=== PATIENT | male | born 1945 | race Caucasian/White ===

== ENCOUNTER 2016-09-04 15:24 | Inpatient (IN) | payer MEDICARE ==
[~2016-09-04] VITALS: Ht 175.3 cm; Wt 87.0 kg
[~2016-09-04 15:24] MED LIST: ASPIRIN ADULT L81 MG PO; AZITHROMYCIN250 MG PO; CATAPRES-T0.1 MG/24 TD; CATAPRES0.1 MG PO; CIPRO XR500 MG PO; CIPROFLOXACN500 MG PO; DILAUDID 2MG2 MG/TA1 PO; DITROPAN OR; DONEPEZIL10 MG PO; FAMOTIDINE20 M1 OR; FAMOTIDINE20 M1 PO; FOLIC ACID1 MG VT; GLIPIZIDE5 MG OR; HEPARIN SC; HYDROCHLOROT12.5 MG OR; KEFLEX500 M1 PO; LANTUS100 MG/ML SC; LANTUS100 UNIT/M SC; LEVITRA20 MG OR; LEVOXYL25 MCG OR; LISINOPRIL20 M1 OR; LISINOPRIL20 MG; LOPRESSOR 550 MG/TAB PO; LOSARTAN POT100 MG PO; MAGNESIUM500 MG VT; METOPROL TAR100 M1 PO; METOPROLOL TAR100 MG PO; METOPROLOL100 M1 VT; NOVOLOG SC; NOVOLOG100 IU/1 M SC; NOVOLOG100 UNIT/M SC; OXYBUTYNIN5 MG PO; PAROXETINE10 MG PO; PROTEINE1 OR; REMERON45 MG VT; SERTRALINE50 MG PO; SIMVASTATIN10 MG PO; SIMVASTATIN20 MG OR; SIMVASTATIN40 MG PO; SYNTHROID OR; TAMSULOSIN0.4 MG OR; TAMSULOSIN0.4 MG PO; TERAZOSIN2 MG OR; TRAMADOL HYDROC50 MG PO; TRANSDERM-1 MG/3 DAY TD; TRICOR145 MG OR; TRICOR145 MG PO; VITAMIN D31000 UNI1 PO; ZANTAC SYRUP15 MG/ML VT; ZESTRIL OR; ZESTRIL40 MG OR; ZITHROMAX500 MG PO; ZOCOR80 MG OR; ZPAK PO; [UNRECOGNIZED DRUG - OTHER] VT
[2016-09-04 17:14] LABS: HEMATOCRIT 39.1 % (39.0-50.0); IMMATURE GRANULOCYTES 0.4 % (0.0-1.0); MEAN CELL VOLUME 81.5 fL CALC (80.0-100.0); MEAN CORPUSCULAR HGB 27.1 pG CALC (26.0-32.0); MEAN CORPUSCULAR HGB CONC 33.2 g/L CALC (32.0-36.0); NEUT# 11.83 thou/uL (1.82-7.42); RED BLOOD COUNT 4.8 mill/uL (4.70-6.10); RED CELL DISTRI WIDTH 13.8 % (11.5-15.5)
[2016-09-04 17:33] LABS: ALBUMIN 3.8 g/dL (3.2-5.0); ALKALINE PHOSPHATASE 125 u/l (38-126); ANION GAP 17 (6-22 (CALC)); BILIRUBIN, TOTAL 0.9 mg/dL (0.0-1.4); BUN 19 mg/dL (8-23); BUN/CREATININE RATIO 24 (12-20 (CALC)); CALCIUM 8.9 mg/dL (8.4-10.2); CARBON DIOXIDE 19 mmol/l (22-30); CHLORIDE 105 mmol/l (95-108); CREATININE 0.8 mg/dL (0.7-1.3); GFR > 60 ML/MIN (>=60 (CALC)); GFR FOR AFR.AMER. > 60 ML/MIN (>=60 (CALC)); GLUCOSE 129 mg/dL (82-115); POTASSIUM 4.3 mmol/l (3.5-5.1); SGOT/AST 22 u/l (19-48); SGPT/ALT 37 u/l (11-66); SODIUM 136 mmol/l (137-146); TOTAL PROTEIN 6.7 g/dL (6.3-8.2)
[2016-09-04 17:45] LABS: MYOGLOBIN 68 ng/mL (0 - 121)
[2016-09-04 18:13] LABS: URINE BILIRUBIN - DIPSTICK NEGATIVE (NEGATIVE); URINE BLOOD DIPSTICK NEGATIVE (NEGATIVE); URINE CLARITY CLEAR; URINE COLOR YELLOW; URINE GLUCOSE - DIPSTICK NEGATIVE (NEGATIVE); URINE KETONE NEGATIVE (NEGATIVE); URINE LEUK ESTERASE NEGATIVE (NEGATIVE); URINE NITRITE - DIPSTICK NEGATIVE (Negative); URINE PROTEIN - DIPSTICK NEGATIVE (NEG-TRACE); URINE SPECIFIC GRAVITY >=1.030; URINE UROBILINOGEN - DIPSTICK 0.2 E.U./dL (0.2)
[2016-09-04 19:53] VITALS: BP 124/65
[2016-09-05 00:05] VITALS: BP 141/74
[2016-09-05 03:57] VITALS: BP 139/69
[2016-09-05 05:56] LABS: HEMATOCRIT 36.2 % (39.0-50.0); HEMOGLOBIN 11.8 g/dl (14.0-18.0); IMMATURE GRANULOCYTES 0.5 % (0.0-1.0); MEAN CELL VOLUME 83.4 fL CALC (80.0-100.0); MEAN CORPUSCULAR HGB 27.2 pG CALC (26.0-32.0); MEAN CORPUSCULAR HGB CONC 32.6 g/L CALC (32.0-36.0); NEUT# 10.07 thou/uL (1.82-7.42); RED BLOOD COUNT 4.34 mill/uL (4.70-6.10)
[2016-09-05 06:05] LABS: ANION GAP 13 (6-22 (CALC)); BUN 19 mg/dL (8-23); BUN/CREATININE RATIO 23 (12-20 (CALC)); CALCIUM 8.3 mg/dL (8.4-10.2); CARBON DIOXIDE 22 mmol/l (22-30); CHLORIDE 108 mmol/l (95-108); CREATININE 0.8 mg/dL (0.7-1.3); GFR > 60 ML/MIN (>=60 (CALC)); GFR FOR AFR.AMER. > 60 ML/MIN (>=60 (CALC)); GLUCOSE 70 mg/dL (82-115); POTASSIUM 3.9 mmol/l (3.5-5.1); SODIUM 140 mmol/l (137-146)
[2016-09-05 08:55] VITALS: BP 110/47
[2016-09-05 16:25] VITALS: BP 120/62
[2016-09-05 21:47] VITALS: BP 133/70
[2016-09-06 05:07] VITALS: BP 154/76
[2016-09-06 05:44] LABS: HEMATOCRIT 38.3 % (39.0-50.0); HEMOGLOBIN 12.2 g/dl (14.0-18.0); IMMATURE GRANULOCYTES 0.5 % (0.0-1.0); MEAN CORPUSCULAR HGB 26.8 pG CALC (26.0-32.0); MEAN CORPUSCULAR HGB CONC 31.9 g/L CALC (32.0-36.0); NEUT# 11.07 thou/uL (1.82-7.42); RED BLOOD COUNT 4.56 mill/uL (4.70-6.10); RED CELL DISTRI WIDTH 13.9 % (11.5-15.5)
[2016-09-06 08:07] VITALS: BP 139/63
[2016-09-06 10:46] VITALS: BP 126/58
[2016-09-06 15:34] VITALS: BP 135/74
[2016-09-06 20:00] VITALS: BP 136/63
[2016-09-07] VITALS: BP 143/68
[2016-09-07 05:51] LABS: HEMATOCRIT 36.6 % (39.0-50.0); HEMOGLOBIN 11.7 g/dl (14.0-18.0); IMMATURE GRANULOCYTES 0.8 % (0.0-1.0); MEAN CELL VOLUME 84.5 fL CALC (80.0-100.0); NEUT# 16.5 thou/uL (1.82-7.42); RED BLOOD COUNT 4.33 mill/uL (4.70-6.10); RED CELL DISTRI WIDTH 13.8 % (11.5-15.5)
[2016-09-07 06:03] LABS: ANION GAP 16 (6-22 (CALC)); BUN 28 mg/dL (8-23); BUN/CREATININE RATIO 30 (12-20 (CALC)); CARBON DIOXIDE 19 mmol/l (22-30); CHLORIDE 109 mmol/l (95-108); CREATININE 0.9 mg/dL (0.7-1.3); GFR > 60 ML/MIN (>=60 (CALC)); GFR FOR AFR.AMER. > 60 ML/MIN (>=60 (CALC)); GLUCOSE 262 mg/dL (82-115); SODIUM 139 mmol/l (137-146)
[2016-09-07 08:00] VITALS: BP 146/84
[2016-09-07] MEDS ORDERED: PLAVIX75 MG PO (10:11)
[2016-09-07] MEDS ORDERED: METRONIDAZOL500 MG PO (10:16)
[2016-09-07] MEDS ORDERED: FLORASTOR250 M1 PO (10:16)
[2016-09-07] MEDS ORDERED: LEVAQUIN750 MG PO (10:16)
[2016-09-07] MEDS ORDERED: IPRATROPIU0.5 MG/3 M IN (10:16)
[2016-09-07] MEDS ORDERED: PREDNISONE10 MG PO (10:26)
[2016-09-07 10:32] VITALS: BP 151/68
[2016-09-07 15:11] VITALS: BP 131/56
== END 2016-09-07 15:51 | DRG 178 ==
LOC: ENPENDDIS → ED 15:24 → ED-I 17:45 → ED 18:15 → MS2 18:16
PROVIDERS: Emergency Medicine; ADMIT Internal Medicine; ATTEND Internal Medicine
PROC: 0T9B70Z Drainage of Bladder with Drainage Device, Via Natural or Artificial Opening (ICD-10-PCS; principal; 2016-09-04)
DX: J69.0 Pneumonitis due to inhalation of food and vomit (principal); J44.0 Chronic obstructive pulmonary disease with (acute) lower respiratory infection; E11.649 Type 2 diabetes mellitus with hypoglycemia without coma; I69.920 Aphasia following unspecified cerebrovascular disease; J18.9 Pneumonia, unspecified organism; R13.10 Dysphagia, unspecified; N31.2 Flaccid neuropathic bladder, not elsewhere classified; I10 Essential (primary) hypertension; E78.5 Hyperlipidemia, unspecified; I25.10 Atherosclerotic heart disease of native coronary artery without angina pectoris; R09.02 Hypoxemia; I69.991 Dysphagia following unspecified cerebrovascular disease; N39.498 Other specified urinary incontinence; Z87.891 Personal history of nicotine dependence; Z79.4 Long term (current) use of insulin
CPT/HCPCS: J1650

== ENCOUNTER 2016-12-19 17:31 | Emergency (ER) | payer MEDICARE ==
[~2016-12-19] VITALS: Ht 175.3 cm; Wt 92.0 kg
[~2016-12-19 17:31] MED LIST changes: +FLORASTOR250 M1 PO; +IPRATROPIU0.5 MG/3 M IN; +LEVAQUIN750 MG PO; +METRONIDAZOL500 MG PO; +PLAVIX75 MG PO; +PREDNISONE10 MG PO
[2016-12-19] MEDS ORDERED: QUETIAPINE FUMA50 M1 PO (17:48)
[2016-12-19] MEDS ORDERED: GABAPENTIN100 MG PO (17:51)
[2016-12-19] MEDS ORDERED: PROBIOTIC1 TAB PO (17:52)
[2016-12-19] MEDS ORDERED: LIPITOR80 M1 PO (17:58)
[2016-12-19 18:01] LABS: HEMATOCRIT 43.4 % (39.0-50.0); IMMATURE GRANULOCYTES 0.6 % (0.0-1.0); MEAN CELL VOLUME 84.1 fL CALC (80.0-100.0); MEAN CORPUSCULAR HGB 27.1 pG CALC (26.0-32.0); MEAN CORPUSCULAR HGB CONC 32.3 g/L CALC (32.0-36.0); NEUT# 6.02 thou/uL (1.82-7.42); RED BLOOD COUNT 5.16 mill/uL (4.70-6.10)
[2016-12-19 18:13] LABS: INTERNATIONAL NORMALIZED RATIO 0.9 RATIO (0.7-1.3); PROTHROMBIN TIME 9.8 SECONDS (9.0-12.5)
[2016-12-19 18:15] LABS: ALBUMIN 4.1 g/dL (3.2-5.0); ALKALINE PHOSPHATASE 177 u/l (38-126); ANION GAP 14 (6-22 (CALC)); BILIRUBIN, TOTAL 0.6 mg/dL (0.0-1.4); BUN 18 mg/dL (8-23); BUN/CREATININE RATIO 20 (12-20 (CALC)); CALCIUM 9.4 mg/dL (8.4-10.2); CARBON DIOXIDE 25 mmol/l (22-30); CHLORIDE 108 mmol/l (95-108); CREATININE 0.9 mg/dL (0.7-1.3); GFR > 60 ML/MIN (>=60 (CALC)); GFR FOR AFR.AMER. > 60 ML/MIN (>=60 (CALC)); GLUCOSE 149 mg/dL (82-115); POTASSIUM 3.9 mmol/l (3.5-5.1); SGOT/AST 27 u/l (19-48); SGPT/ALT 35 u/l (11-66); SODIUM 143 mmol/l (137-146); TOTAL PROTEIN 7.4 g/dL (6.3-8.2)
[2016-12-19 18:27] LABS: MYOGLOBIN 55 ng/mL (0 - 121)
[2016-12-19 19:26] VITALS: BP 142/64
== END 2016-12-19 19:27 | disposition short-term general hospital (02) ==
LOC: ED 17:31
PROVIDERS: Emergency Medicine
DX: G45.9 Transient cerebral ischemic attack, unspecified (principal); I10 Essential (primary) hypertension; R53.1 Weakness; E11.9 Type 2 diabetes mellitus without complications; Z79.4 Long term (current) use of insulin; Z85.46 Personal history of malignant neoplasm of prostate; E78.5 Hyperlipidemia, unspecified; J44.9 Chronic obstructive pulmonary disease, unspecified; R29.703 NIHSS score 3

== ENCOUNTER 2017-02-18 17:13 | Inpatient (IN) | payer MEDICARE ==
[~2017-02-18] VITALS: Ht 175.3 cm; Wt 85.0 kg
[~2017-02-18 17:13] MED LIST changes: +GABAPENTIN100 MG PO; +LIPITOR80 M1 PO; +PROBIOTIC1 TAB PO; +QUETIAPINE FUMA50 M1 PO
--- NOTE | 2017-02-18 17:26 | NUR ---
TO TX ROOM VIA W/C
[2017-02-18] MEDS ORDERED: ARICEPT5 MG PO (18:38)
--- NOTE | 2017-02-18 18:50 | NUR ---
TO ROOM 7 FOR FURTHER CARE
--- NOTE | 2017-02-18 18:51 | NUR ---
PT TO ROOM 8 - RECEIVED REPORT FROM YVES LUJAN.
[2017-02-18] MEDS ORDERED: ZOLOFT25 MG PO (18:53)
[2017-02-18 19:04] LABS: HEMATOCRIT 47.2 % (39.0-50.0); HEMOGLOBIN 14.6 g/dl (14.0-18.0); IMMATURE GRANULOCYTES 0.3 % (0.0-1.0); MEAN CELL VOLUME 88.6 fL CALC (80.0-100.0); MEAN CORPUSCULAR HGB 27.4 pG CALC (26.0-32.0); MEAN CORPUSCULAR HGB CONC 30.9 g/L CALC (32.0-36.0); NEUT# 7.44 thou/uL (1.82-7.42); RED BLOOD COUNT 5.33 mill/uL (4.70-6.10); RED CELL DISTRI WIDTH 14.8 % (11.5-15.5)
[2017-02-18 19:16] LABS: ALBUMIN 4.5 g/dL (3.2-5.0); ALKALINE PHOSPHATASE 203 u/l (38-126); ANION GAP 20 (6-22 (CALC)); BILIRUBIN, TOTAL 0.8 mg/dL (0.0-1.4); BUN 17 mg/dL (8-23); BUN/CREATININE RATIO 18 (12-20 (CALC)); CALCIUM 9.9 mg/dL (8.4-10.2); CARBON DIOXIDE 17 mmol/l (22-30); CHLORIDE 110 mmol/l (95-108); GFR > 60 ML/MIN (>=60 (CALC)); GFR FOR AFR.AMER. > 60 ML/MIN (>=60 (CALC)); GLUCOSE 133 mg/dL (82-115); SGOT/AST 39 u/l (19-48); SGPT/ALT 40 u/l (11-66); SODIUM 142 mmol/l (137-146)
[2017-02-18 19:28] LABS: MYOGLOBIN 44 ng/mL (0 - 121)
--- NOTE | 2017-02-18 19:50 | NUR ---
UPDATE DAUGHTER ON PLAN OF CARE. WILL HOLD OFF ON ANTIBIOTICS AND FLUID UNTIL TEST BACK. DAUGHTER PREFERS NOT TO GIVE ANTIBIOTICS FOR VIRAL.
[2017-02-18 20:06] LABS: INFLUENZA A NONE DETECTED (NONE DETECT); INFLUENZA B NONE DETECTED (NONE DETECT)
--- NOTE | 2017-02-18 20:20 | NUR ---
STRAIGHT CATH URINE COLLECTED AND SENT TO LAB. PT CLEANSED DUE TO INCONTINENT OF URINE AND SMALL AMOUNT OF STOOL.
[2017-02-18 20:40] LABS: URINE BILIRUBIN - DIPSTICK NEGATIVE (NEGATIVE); URINE BLOOD DIPSTICK NEGATIVE (NEGATIVE); URINE COLOR YELLOW; URINE GLUCOSE - DIPSTICK NEGATIVE (NEGATIVE); URINE KETONE NEGATIVE (NEGATIVE); URINE LEUK ESTERASE NEGATIVE (Negative); URINE NITRITE - DIPSTICK NEGATIVE (Negative); URINE PH 5.5 (4.5-8.0); URINE PROTEIN - DIPSTICK NEGATIVE (NEG-TRACE); URINE SPECIFIC GRAVITY >=1.030; URINE UROBILINOGEN - DIPSTICK 0.2 E.U./dL (0.2)
[2017-02-18 20:41] LABS: URINE CLARITY CLEAR
--- NOTE | 2017-02-18 20:58 | NUR ---
SPOKE WITH DR JIMENEZ ABOUT ORDERS, DR JIMENEZ WILL RE-EVALUATE.
--- NOTE | 2017-02-18 21:12 | NUR ---
DR JIMENEZ IN TO RE-EVALUATE PT.
--- NOTE | 2017-02-18 21:14 | NUR ---
PER DR JIMENEZ, GIVE ANTIBIOTICS.
--- NOTE | 2017-02-18 22:09 | NUR ---
REPORT GIVEN TO KIM YUAN
--- NOTE | 2017-02-18 22:15 | NUR ---
Admission Note Report Given to: KIM YUAN Transported by: Wheelchair X Stretcher Transported with: X Nurse Transporter X Patent IV X O2 X Conductor/Engineer
[2017-02-18 22:30] VITALS: BP 144/81
--- NOTE | 2017-02-18 22:30 | NUR ---
PT RECEIVED FROM ER VIA STRETCHER ACCOMPANIED BY EMIL MARINELLI, TRANSFERRED TO BED WITH ASSISTANCE X3, PT A/O TO SELF, AND PLACE, HAS GARBLED SPEECH. LEFT FACIAL DROOP DUE TO HX OF STROKE, LEFT HAND MANAGER INTEGRATED WEAKER THAN RIGHT. DAUGHTER (SHAILESH PERALTA) AT PT'S SIDE STATES SHE LIVES WITH HIM, AND AT HOME HE IS ABLE TO WALK USING A WALKER AND DO FOR HIMSELF WITH MINIMAL ASSISTANCE SHE WORKS IN THE DAY TIME AND PT STAYS HOME. DAUGHTER STATES PT HAS HAD A FEVER, WEAKNESS, CONGESTION, NON PRODUCTIVE COUGH, AND SORE THROAT FOR THE PAST 3DAYS. LEVAQUIN INFUSING TO RFA WITH NO COMPLICATIONS. ACCUCHECK 135, PUDDING AND YOGURT PROVIDED FOR BED TIME SNACK, PT ABLE TO FEED HIMSELF. THICKENED LIQUIDS AT BED SIDE, PT'S DAUGHTER STATES PT IS SUPPOSED TO BE ON THICKENED LIQUIDS AT HOME, BUT HE USUALLY DRINKS ANYTHING HE WANTS. CALL LIGHT IN REACH, WILL CONTINUE TO MONITOR.
--- NOTE | 2017-02-19 01:00 | NUR ---
RESTING IN SEMIFOWLERS WITH EYES CLOSED, RESPIRATIONS EVEN AND UNLABORED.
--- NOTE | 2017-02-19 04:28 | NUR ---
MORNING BLOOD WORK DRAWN BY [employer]ATSWAIN'S MATE, TOLERATED WELL.
[2017-02-19 05:01] VITALS: BP 135/64
[2017-02-19 05:15] LABS: HEMATOCRIT 37.8 % (39.0-50.0); HEMOGLOBIN 12.3 g/dl (14.0-18.0); IMMATURE GRANULOCYTES 0.4 % (0.0-1.0); MEAN CELL VOLUME 85.7 fL CALC (80.0-100.0); MEAN CORPUSCULAR HGB 27.9 pG CALC (26.0-32.0); MEAN CORPUSCULAR HGB CONC 32.5 g/L CALC (32.0-36.0); NEUT# 4.57 thou/uL (1.82-7.42); RED BLOOD COUNT 4.41 mill/uL (4.70-6.10); RED CELL DISTRI WIDTH 14.6 % (11.5-15.5)
[2017-02-19 05:29] LABS: ANION GAP 15 (6-22 (CALC)); BUN 17 mg/dL (8-23); BUN/CREATININE RATIO 18 (12-20 (CALC)); CALCIUM 9.3 mg/dL (8.4-10.2); CARBON DIOXIDE 21 mmol/l (22-30); CHLORIDE 110 mmol/l (95-108); CREATININE 0.9 mg/dL (0.7-1.3); GFR > 60 ML/MIN (>=60 (CALC)); GFR FOR AFR.AMER. > 60 ML/MIN (>=60 (CALC)); GLUCOSE 116 mg/dL (82-115); POTASSIUM 4.3 mmol/l (3.5-5.1); SODIUM 142 mmol/l (137-146)
--- NOTE | 2017-02-19 07:34 | NUR ---
REPORT RECEIVED FROM KIM YUAN. PT SUPINE IN BED. SLEEPING. CALL LIGHT WITHIN REACH.
[2017-02-19 08:18] VITALS: BP 136/56
--- NOTE | 2017-02-19 08:52 | NUR ---
PT SITTING UPRIGHT IN BED. DENIES PAIN. REPORTING OF CONCERNS ENCOURAGED. FALL PRECAUTIONS REINFORCED. CALL LIGHT REVIEWED AND IN REACH. PT STATES UNDERSTANDING.
[2017-02-19 11:22] VITALS: BP 109/62
--- NOTE | 2017-02-19 12:33 | NUR ---
PT SITTING UPRIGHT IN BED. DR. BERUMEN IN TO SEE PT AT THIS TIME.
[2017-02-19 15:57] LABS: CHOLESTEROL HDL RATIO 5.1 (<4.4 (CALC))
[2017-02-19 16:00] VITALS: BP 114/64
--- NOTE | 2017-02-19 16:42 | NUR ---
PT FOUND BY RT KNEELING ON THE FLOOR. DENIES FALLING. SELECTIVE IN ANSWERING QUESTIONS BY STAFF. FALL PRECAUTIONS REINFORCED. CALLING FOR ASSISTANCE TO GET UP REINFORCED. CALL LIGHT REIVEWED AND IN REACH. PT ASSISTED BACK TO BED. BED ALARM SET FOR SAFETY R/T IMPULSIVITY.
[2017-02-19 18:45] VITALS: BP 136/73
--- NOTE | 2017-02-19 19:45 | NUR ---
BEDSIDE REPORT RECEIVED FROM YVES SANTAMARIA. PT SITTING UP IN BED WITH DAUGHTER AT BEDSIDE. ALERT AND ORIENTED. DENIES PAIN CURRENTLY. RESPIRATIONS EVEN AND UNLABORED. RECEIVES HONEY THICKENED LIQUIDS. PLAN OF CARE DISCUSSED WITH DAUGHTER PRESENT. PT ENCOURAGED TO VERBALIZE CONCERNS. STATES UNDERSTANDING. SAFETY MEASURES IN PLACE INCLUDING BED ALARM. CALL LIGHT SYSTEM REVIEWED AND IN REACH.
--- NOTE | 2017-02-20 00:48 | NUR ---
PT ASLEEP AT THIS TIME. AWAKENS SPONTANOUSLY. DENIES PAIN. RESPIRATIONS EVEN AND UNLABORED. NO REQUESTS AT THIS TIME. USING URINAL TO VOID. SAFETY MEASURES IN PLACE. CALL LIGHT WITHIN REACH.
--- NOTE | 2017-02-20 05:00 | NUR ---
PT USING BEDSIDE URINAL AND ALSO INCONTINENT OF URINE. IV ABT HAVE INFUSED WITHOUT DIFFICUTLY AND WITH NO ADVERSE EFFECTS NOTED. PT HAS NO REQUESTS OR COMPLAINTS AT THIS TIME. REPOSITIONS SELF IN BED. SAFETY MEASURES IN PLACE. CALL LIGHT WITHIN REACH.
[2017-02-20 05:06] LABS: ANION GAP 19 (6-22 (CALC)); BUN 24 mg/dL (8-23); BUN/CREATININE RATIO 26 (12-20 (CALC)); CALCIUM 9.6 mg/dL (8.4-10.2); CARBON DIOXIDE 17 mmol/l (22-30); CHLORIDE 113 mmol/l (95-108); CREATININE 0.9 mg/dL (0.7-1.3); GFR > 60 ML/MIN (>=60 (CALC)); GFR FOR AFR.AMER. > 60 ML/MIN (>=60 (CALC)); GLUCOSE 263 mg/dL (82-115); MAGNESIUM 2.1 mg/dL (1.6-2.3); POTASSIUM 4.7 mmol/l (3.5-5.1); SODIUM 143 mmol/l (137-146)
[2017-02-20 05:13] LABS: HEMATOCRIT 39.5 % (39.0-50.0); HEMOGLOBIN 12.7 g/dl (14.0-18.0); IMMATURE GRANULOCYTES 0.4 % (0.0-1.0); MEAN CELL VOLUME 85.9 fL CALC (80.0-100.0); MEAN CORPUSCULAR HGB 27.6 pG CALC (26.0-32.0); MEAN CORPUSCULAR HGB CONC 32.2 g/L CALC (32.0-36.0); NEUT# 9.45 thou/uL (1.82-7.42); RED BLOOD COUNT 4.6 mill/uL (4.70-6.10); RED CELL DISTRI WIDTH 14.6 % (11.5-15.5)
[2017-02-20 05:18] VITALS: BP 157/71
--- NOTE | 2017-02-20 07:00 | NUR ---
SHIFT CHANGE REPORT, AWAKE, ALERT AND ORIENTED TO PERSON AND PLACE ONLY, DENIES PAIN AT THIS TIME, ALL NEEDS ADDRESSED, CALL AGUILERA IN REACH.
[2017-02-20 07:58] VITALS: BP 136/72
[2017-02-20 11:28] VITALS: BP 129/89
--- NOTE | 2017-02-20 12:00 | NUR ---
ASSISTED OOB TO RECLINER AND SET UP FOR MEAL, PT REPORTED HE WENT BR BY SELF ADVISED TO CALL FOR ASSIST AND EDUCATED ON FALL PRECAUTIONS, CALL AGUILERA IN REACH, WILL CONTINUE TO MONITOR.
[2017-02-20 15:52] VITALS: BP 119/56
--- NOTE | 2017-02-20 16:04 | NUR ---
RESTING IN BED AT THIS TIME, BODY ALARM PLACED AND PT INFORMED OF REASON, HE HAS BEEN IMPULSIVE- GETTING UP WITHOUT CALLING FOR ASSISTANCE, GAIT IS NOT VERY STEADY, WILL CONTINUE TO MONITOR AND IMPLEMENT SAFETY MEASURES.
--- NOTE | 2017-02-20 18:47 | NUR ---
PATIENT SEEN THIS AFTERNOON FOR GT X 15 MIN WITH STRAIGHT CANE. SIT TO STAND FROM CHAIR WITH CGA ONLY WITH CANE. AMB 75 FT TO END OF WHITE WITH CORRECTION OF SEQUENCING OF CANE WITH LEFT FOOT. HE TENDS TO TAKE MULTIPLE AND UNEVEN STEPS BEFORE ADVANCING CANE WITHOUT ASSIST. NO LOB AND O2 SATS REMAIONED ABOVE 93% ON ROOM AIR. HE SAT FOR SHORT REST AND THEN RETURND WITH MIN A FOR SEQUENCING CANE ONLY. FLAT FOOTED GAIT, BUT IMPROVED KNEE EXT AFTER FIRST WALK AND WITH V.C.'S. REQUESTED OT CONSULT PATIENT IS NO MOTIVATED FOR INPATIENT TX, IS NON-COMPLIANT WITH PRECAUTIONS (DOES NOT WISH TO USE WALKER, THICKENED LIQUIDS ETC). HIS DAUGHTER DOES NOT LIVE WITH HIM, BUT COMES AND STAYS WITH HIM FOR SHOWERING AND OTHER ADL FOR SAFETY.
[2017-02-20 19:25] VITALS: BP 126/74
--- NOTE | 2017-02-20 19:55 | NUR ---
PT WATCHING TV IN BED. PT ALERT AND ORIENTED; SPEECH SLURRED. HAND GRASP STRONG BILAT. RESP EVEN AND UNLABORED. WHEEZING IN UPPER LOBES, CLEAR IN BASES. NO DISTRESS NOTED. ABD SOFT, BOWEL SOUNDS PRESENT. TELE IN PLACE. IV RFA PATENT, FLUSHED WITHOUT ANY DIFFICULTY. PT DENIES ANY PAIN OR DISCOMFORT. FREQUENT ROUNDS MADE. SAFTEY PRECAUTIONS REINFORCED; BED ALARM ON FOR SAFETY. CALL LIGHT WITHIN REACH.
--- NOTE | 2017-02-21 00:20 | NUR ---
PT RESTING IN BED WATCHING TV. PT DENIES ANY PAIN OR DISCOMFORT. TELE IN PLACE. RESP EVEN AND UNLABORED. NO DISTRESS NOTED. BED ALARM ON. CALL LIGHT WITHIN REACH.
[2017-02-21 00:26] VITALS: BP 158/75
--- NOTE | 2017-02-21 04:17 | NUR ---
PT AWAKE WATCHING TV. PT DENIES ANY PAIN OR DISCOMFORT. RESP EVEN AND UNLABORED. NO DISTRESS NOTED. CALL LIGHT WITHIN REACH.
[2017-02-21 05:14] VITALS: BP 155/72
[2017-02-21 06:11] LABS: HEMATOCRIT 37.5 % (39.0-50.0); IMMATURE GRANULOCYTES 0.9 % (0.0-1.0); MEAN CELL VOLUME 85.8 fL CALC (80.0-100.0); MEAN CORPUSCULAR HGB 27.5 pG CALC (26.0-32.0); NEUT# 12.68 thou/uL (1.82-7.42); RED BLOOD COUNT 4.37 mill/uL (4.70-6.10); RED CELL DISTRI WIDTH 14.6 % (11.5-15.5)
[2017-02-21 06:26] LABS: ANION GAP 20 (6-22 (CALC)); BUN 28 mg/dL (8-23); BUN/CREATININE RATIO 35 (12-20 (CALC)); CALCIUM 9.3 mg/dL (8.4-10.2); CARBON DIOXIDE 16 mmol/l (22-30); CHLORIDE 113 mmol/l (95-108); CREATININE 0.8 mg/dL (0.7-1.3); GFR > 60 ML/MIN (>=60 (CALC)); GFR FOR AFR.AMER. > 60 ML/MIN (>=60 (CALC)); GLUCOSE 227 mg/dL (82-115); POTASSIUM 4.6 mmol/l (3.5-5.1); SODIUM 145 mmol/l (137-146)
--- NOTE | 2017-02-21 07:00 | NUR ---
SHIFT CHANGE REPORT FROM NAYELY PT AWAKE AND ALERT SITTING UP IN BED, DENIES DISCOMFORT, TELE MONITOR IN PLACE, CALL AGUILERA IN REACH.
[2017-02-21 07:43] VITALS: BP 154/72
--- NOTE | 2017-02-21 11:00 | NUR ---
PT WAS SEEN SITTING IN THE RECLINER. SPO2 ON ROOM AIR WAS 94%. PT WAS ABLE TO STAND UP FROM SHORT SITTING WITH 2 ATTEMPTS TO PUSH HIMSELF UP TO STAND. AMBULATED ~60 FT. X 2 WITH RW AND CGA. PT TENDS TO WALK IN AN UNSAFE FAST PACE. REMINDED PT ON FALL PRECAUTIONS TO WHICH THE PT NODDED TO SHOW UNDERSTANDING. PT RETURNED TO HIS ROOM AND SAT BACK IN THE CHAIR WITH VERBAL CUES. NO ADVERSE RXNS NOTED. SPO2 REMAINED AT 94% HOWEVER STATED FEELING WINDED. LEFT PT WITH CALL AGUILERA WITHIN REACH.
[2017-02-21 11:30] VITALS: BP 130/68
[2017-02-21] MEDS ORDERED: IPRATROPIU0.5 MG/3 M IN (12:52)
[2017-02-21] MEDS ORDERED: DOXYCYCL HYC100 MG PO (12:52)
[2017-02-21] MEDS ORDERED: METRONIDAZOL500 MG PO (12:52)
[2017-02-21] MEDS ORDERED: PREDNISONE10 MG PO (12:52)
--- NOTE | 2017-02-21 12:52 | NUR ---
O.T. instructed patient in safe transfers and patient performed sit <-> stand with CG and used R.W. to bathroom and performed toilet transfer with CG and VCs to use grab bar. Patient performed grooming at sink with CG and stepped back and had L.O.B. with Min A to regain and right back to midline. Patient aware of L.O.B. and said "I am alright." Patient used R.W. in room to recliner and needed VCs for proper hand placement.
[2017-02-21] MEDS ORDERED: TRAMADOL HCL50 MG PO (12:57)
[2017-02-21 15:40] VITALS: BP 146/68
== END 2017-02-21 17:49 | disposition home health service (06) | DRG 178 ==
LOC: ED 17:13 → ED-I 21:09 → ED 21:23 → MS2 21:24
PROVIDERS: Emergency Medicine; Nurse Practitioner Family; ADMIT Internal Medicine; ATTEND Internal Medicine
PROC: 3E0234Z Introduction of Serum, Toxoid and Vaccine into Muscle, Percutaneous Approach (ICD-10-PCS; principal; 2017-02-20)
DX: J69.0 Pneumonitis due to inhalation of food and vomit (principal); I69.954 Hemiplegia and hemiparesis following unspecified cerebrovascular disease affecting left non-dominant side; E11.40 Type 2 diabetes mellitus with diabetic neuropathy, unspecified; I69.922 Dysarthria following unspecified cerebrovascular disease; I69.992 Facial weakness following unspecified cerebrovascular disease; I10 Essential (primary) hypertension; I25.10 Atherosclerotic heart disease of native coronary artery without angina pectoris; I69.991 Dysphagia following unspecified cerebrovascular disease; R13.10 Dysphagia, unspecified; N40.0 Benign prostatic hyperplasia without lower urinary tract symptoms; Z87.891 Personal history of nicotine dependence; Z79.4 Long term (current) use of insulin; Z23 Encounter for immunization
CPT/HCPCS: G0378

== ENCOUNTER 2017-03-29 16:50 | Emergency (ER) | payer MEDICARE ==
[~2017-03-29] VITALS: Ht 175.3 cm; Wt 87.3 kg
[~2017-03-29 16:50] MED LIST changes: +ARICEPT5 MG PO; +DOXYCYCL HYC100 MG PO; +TRAMADOL HCL50 MG PO; +ZOLOFT25 MG PO
[2017-03-29 17:57] LABS: HEMATOCRIT 41.7 % (39.0-50.0); HEMOGLOBIN 13.2 g/dl (14.0-18.0); IMMATURE GRANULOCYTES 0.5 % (0.0-1.0); MEAN CELL VOLUME 85.5 fL CALC (80.0-100.0); MEAN CORPUSCULAR HGB CONC 31.7 g/L CALC (32.0-36.0); NEUT# 6.89 thou/uL (1.82-7.42); RED BLOOD COUNT 4.88 mill/uL (4.70-6.10); RED CELL DISTRI WIDTH 14.8 % (11.5-15.5)
[2017-03-29 18:00] LABS: INTERNATIONAL NORMALIZED RATIO 0.9 RATIO (0.7-1.3); PROTHROMBIN TIME 10.1 SECONDS (9.0-12.5)
[2017-03-29 18:01] LABS: ALBUMIN 3.7 g/dL (3.2-5.0); ALKALINE PHOSPHATASE 171 u/l (38-126); ANION GAP 17 (6-22 (CALC)); BILIRUBIN, TOTAL 0.5 mg/dL (0.0-1.4); BUN 15 mg/dL (8-23); BUN/CREATININE RATIO 15 (12-20 (CALC)); CARBON DIOXIDE 24 mmol/l (22-30); CHLORIDE 109 mmol/l (95-108); CREATININE 0.9 mg/dL (0.7-1.3); GFR > 60 ML/MIN (>=60 (CALC)); GFR FOR AFR.AMER. > 60 ML/MIN (>=60 (CALC)); POTASSIUM 4.5 mmol/l (3.5-5.1); SGOT/AST 23 u/l (19-48); SGPT/ALT 29 u/l (11-66); SODIUM 145 mmol/l (137-146); TOTAL PROTEIN 6.5 g/dL (6.3-8.2)
[2017-03-29 18:18] VITALS: BP 178/73
== END 2017-03-29 18:19 | disposition short-term general hospital (02) ==
LOC: ED 16:50
PROVIDERS: Emergency Medicine
DX: I63.9 Cerebral infarction, unspecified (principal); R13.10 Dysphagia, unspecified; R47.1 Dysarthria and anarthria; R29.810 Facial weakness; R53.1 Weakness; I10 Essential (primary) hypertension; R29.705 NIHSS score 5

== ENCOUNTER 2017-08-12 16:41 | Observation (INO) | payer MEDICARE ==
[~2017-08-12] VITALS: Ht 175.3 cm; Wt 86.0 kg
[2017-08-12 17:33] LABS: HEMOGLOBIN 13.6 g/dl (14.0-18.0); IMMATURE GRANULOCYTES 0.5 % (0.0-1.0); MEAN CELL VOLUME 82.9 fL CALC (80.0-100.0); MEAN CORPUSCULAR HGB 26.2 pG CALC (26.0-32.0); MEAN CORPUSCULAR HGB CONC 31.6 g/L CALC (32.0-36.0); NEUT# 5.44 thou/uL (1.82-7.42); RED BLOOD COUNT 5.19 mill/uL (4.70-6.10); RED CELL DISTRI WIDTH 15.5 % (11.5-15.5)
[2017-08-12 17:50] LABS: INTERNATIONAL NORMALIZED RATIO 0.9 RATIO (0.7-1.3); PROTHROMBIN TIME 10.3 SECONDS (9.0-12.5)
[2017-08-12 17:51] LABS: ANION GAP 13 (6-22 (CALC)); BUN 18 mg/dL (8-23); BUN/CREATININE RATIO 19 (12-20 (CALC)); CARBON DIOXIDE 25 mmol/l (22-30); CHLORIDE 107 mmol/l (95-108); GFR > 60 ML/MIN (>=60 (CALC)); GFR FOR AFR.AMER. > 60 ML/MIN (>=60 (CALC)); POTASSIUM 3.9 mmol/l (3.5-5.1); SODIUM 141 mmol/l (137-146)
[2017-08-12 20:00] VITALS: BP 145/66
[2017-08-13 00:12] VITALS: BP 147/74
[2017-08-13 04:41] VITALS: BP 127/64
[2017-08-13 07:25] VITALS: BP 114/63
[2017-08-13 10:48] LABS: URINE BILIRUBIN - DIPSTICK NEGATIVE (NEGATIVE); URINE BLOOD DIPSTICK NEGATIVE (NEGATIVE); URINE COLOR YELLOW; URINE GLUCOSE - DIPSTICK NEGATIVE (NEGATIVE); URINE KETONE NEGATIVE (NEGATIVE); URINE LEUK ESTERASE NEGATIVE (NEGATIVE); URINE NITRITE - DIPSTICK NEGATIVE (Negative); URINE PROTEIN - DIPSTICK NEGATIVE (NEG-TRACE); URINE UROBILINOGEN - DIPSTICK 0.2 E.U./dL (0.2)
[2017-08-13 10:49] LABS: URINE CLARITY CLEAR
[2017-08-13 11:40] VITALS: BP 123/67; BP 167/68
[2017-08-13 15:25] VITALS: BP 119/62
[2017-08-13 19:00] VITALS: BP 130/67
[2017-08-14 00:07] VITALS: BP 135/63
[2017-08-14 04:07] VITALS: BP 141/70
[2017-08-14 04:10] VITALS: BP 156/84
[2017-08-14 05:04] LABS: HEMATOCRIT 41.6 % (39.0-50.0); HEMOGLOBIN 13.5 g/dl (14.0-18.0); MEAN CELL VOLUME 81.7 fL CALC (80.0-100.0); MEAN CORPUSCULAR HGB 26.5 pG CALC (26.0-32.0); MEAN CORPUSCULAR HGB CONC 32.5 g/L CALC (32.0-36.0); RED BLOOD COUNT 5.09 mill/uL (4.70-6.10); RED CELL DISTRI WIDTH 15.2 % (11.5-15.5)
[2017-08-14 08:00] VITALS: BP 136/61
[2017-08-14 11:30] VITALS: BP 145/63
[2017-08-14] MEDS ORDERED: DOXYCYC MONO100 M2 PO (12:58)
[2017-08-14] MEDS ORDERED: PREDNISONE10 MG PO (12:58)
== END 2017-08-14 15:22 | disposition home health service (06) ==
LOC: ED 16:41 → ED-I 17:58 → ED 18:08 → MS2 18:09
PROVIDERS: Family Medicine; Nurse Practitioner Family; ADMIT Internal Medicine; ATTEND Internal Medicine
DX: M10.071 Idiopathic gout, right ankle and foot (principal); L03.115 Cellulitis of right lower limb; I10 Essential (primary) hypertension; I69.392 Facial weakness following cerebral infarction; I69.322 Dysarthria following cerebral infarction; I69.354 Hemiplegia and hemiparesis following cerebral infarction affecting left non-dominant side; I69.391 Dysphagia following cerebral infarction; R13.10 Dysphagia, unspecified; J44.9 Chronic obstructive pulmonary disease, unspecified; E11.9 Type 2 diabetes mellitus without complications; I25.10 Atherosclerotic heart disease of native coronary artery without angina pectoris; Z87.01 Personal history of pneumonia (recurrent); Z92.3 Personal history of irradiation; Z85.46 Personal history of malignant neoplasm of prostate; Z87.891 Personal history of nicotine dependence

== ENCOUNTER 2017-09-01 14:52 | Emergency (ER) | payer MEDICARE ==
[~2017-09-01] VITALS: Ht 175.3 cm; Wt 80.0 kg
[~2017-09-01 14:52] MED LIST changes: +DOXYCYC MONO100 M2 PO
[2017-09-01 16:28] LABS: HEMATOCRIT 43.4 % (39.0-50.0); HEMOGLOBIN 13.8 g/dl (14.0-18.0); IMMATURE GRANULOCYTES 0.5 % (0.0-1.0); MEAN CELL VOLUME 83.5 fL CALC (80.0-100.0); MEAN CORPUSCULAR HGB 26.5 pG CALC (26.0-32.0); MEAN CORPUSCULAR HGB CONC 31.8 g/L CALC (32.0-36.0); NEUT# 6.61 thou/uL (1.82-7.42); RED BLOOD COUNT 5.2 mill/uL (4.70-6.10); RED CELL DISTRI WIDTH 16.1 % (11.5-15.5)
[2017-09-01 16:41] LABS: ALBUMIN 3.5 g/dL (3.2-5.0); ALKALINE PHOSPHATASE 140 u/l (38-126); ANION GAP 16 (6-22 (CALC)); BILIRUBIN, TOTAL 0.6 mg/dL (0.0-1.4); BUN 16 mg/dL (8-23); BUN/CREATININE RATIO 16 (12-20 (CALC)); CARBON DIOXIDE 23 mmol/l (22-30); CHLORIDE 106 mmol/l (95-108); GFR > 60 ML/MIN (>=60 (CALC)); GFR FOR AFR.AMER. > 60 ML/MIN (>=60 (CALC)); POTASSIUM 4.5 mmol/l (3.5-5.1); SGOT/AST 23 u/l (19-48); SGPT/ALT 23 u/l (11-66); SODIUM 141 mmol/l (137-146); TOTAL PROTEIN 6.6 g/dL (6.3-8.2)
[2017-09-01] MEDS ORDERED: ALLOPURINOL100 MG PO (16:47)
[2017-09-01] MEDS ORDERED: METFORMIN500 M2 PO (16:51)
[2017-09-01] MEDS ORDERED: ROBITUSSIN AC10 ML PO (17:02)
[2017-09-01] MEDS ORDERED: ZPAK PO (17:02)
[2017-09-01 17:03] LABS: URINE BILIRUBIN - DIPSTICK NEGATIVE (NEGATIVE); URINE BLOOD DIPSTICK NEGATIVE (NEGATIVE); URINE COLOR YELLOW; URINE GLUCOSE - DIPSTICK NEGATIVE (NEGATIVE); URINE KETONE NEGATIVE (NEGATIVE); URINE LEUK ESTERASE TRACE (NEGATIVE); URINE NITRITE - DIPSTICK NEGATIVE (Negative); URINE PROTEIN - DIPSTICK NEGATIVE (NEG-TRACE)
[2017-09-01 17:04] LABS: URINE CLARITY CLEAR
[2017-09-01 18:43] VITALS: BP 136/65
== END 2017-09-01 18:38 | disposition home or self-care (01) ==
LOC: ED 14:52
PROVIDERS: Emergency Medicine
DX: J06.9 Acute upper respiratory infection, unspecified (principal); R25.1 Tremor, unspecified; E11.9 Type 2 diabetes mellitus without complications; I10 Essential (primary) hypertension; F99 Mental disorder, not otherwise specified; Z86.73 Personal history of transient ischemic attack (TIA), and cerebral infarction without residual deficits; Z92.3 Personal history of irradiation

== ENCOUNTER → 2018-04-15 | Outpatient (REF) | payer MEDICARE ==
[~2018-04-15] MED LIST changes: +ALLOPURINOL100 MG PO; +METFORMIN500 M2 PO; +ROBITUSSIN AC10 ML PO
[2018-04-15 10:14] LABS: ALKALINE PHOSPHATASE 143 u/l (38-126); ANION GAP 15 (6-22 (CALC)); BILIRUBIN, TOTAL 0.6 mg/dL (0.0-1.4); BUN 17 mg/dL (8-23); BUN/CREATININE RATIO 21 (12-20 (CALC)); CALCULATED LDLCHOLESTEROL 174 mg/dL (62-129 (CALC)); CARBON DIOXIDE 25 mmol/l (22-30); CHLORIDE 105 mmol/l (95-108); CHOLESTEROL HDL RATIO 9.2 (<4.4 (CALC)); CREATININE 0.8 mg/dL (0.7-1.3); GFR > 60 ML/MIN (>=60 (CALC)); GFR FOR AFR.AMER. > 60 ML/MIN (>=60 (CALC)); HDL CHOLESTEROL 29 mg/dL (>=40); POTASSIUM 4.8 mmol/l (3.5-5.1); SGOT/AST 29 u/l (19-48); SODIUM 140 mmol/l (137-146); TOTAL CHOLESTEROL 266 mg/dl (0-199); TOTAL PROTEIN 6.8 g/dL (6.3-8.2); TOTAL TRIGLYCERIDES 313 mg/dl (30-149); VLDL CHOLESTROL 63 mg/dl (0-38 (CALC))
[2018-04-15 10:15] LABS: HEMATOCRIT 41.5 % (39.0-50.0); HEMOGLOBIN 13.1 g/dl (14.0-18.0); MEAN CELL VOLUME 90.8 fL CALC (80.0-100.0); MEAN CORPUSCULAR HGB 28.7 pG CALC (26.0-32.0); MEAN CORPUSCULAR HGB CONC 31.6 g/L CALC (32.0-36.0); RED BLOOD COUNT 4.57 mill/uL (4.70-6.10)
== END | disposition home or self-care (01) ==
LOC: LAB 09:11
PROVIDERS: ATTEND Internal Medicine
DX: E11.40 Type 2 diabetes mellitus with diabetic neuropathy, unspecified (principal); E11.65 Type 2 diabetes mellitus with hyperglycemia; E78.2 Mixed hyperlipidemia; G81.90 Hemiplegia, unspecified affecting unspecified side; I10 Essential (primary) hypertension; Z12.5 Encounter for screening for malignant neoplasm of prostate

== ENCOUNTER 2019-03-23 | Emergency (ER) | payer OTHER, MEDICARE ==
[2019-03-23 20:07] LABS: HEMATOCRIT 35.4 % (39.0-50.0); HEMOGLOBIN 11.3 g/dl (14.0-18.0); IMMATURE GRANULOCYTES 0.6 % (0.0-5.0); MEAN CELL VOLUME 83.7 fL CALC (80.0-100.0); MEAN CORPUSCULAR HGB 26.7 pG CALC (26.0-32.0); MEAN CORPUSCULAR HGB CONC 31.9 g/L CALC (32.0-36.0); NEUT# 11.01 thou/uL (1.82-7.42); RED BLOOD COUNT 4.23 mill/uL (4.70-6.10); RED CELL DISTRI WIDTH 15.1 % (11.5-15.5)
[2019-03-23 20:27] LABS: ALBUMIN 3.9 g/dL (3.2-5.0); ALKALINE PHOSPHATASE 331 u/l (38-126); BUN 38 mg/dL (8-23); BUN/CREATININE RATIO 48 (12-20 (CALC)); CARBON DIOXIDE 20 mmol/l (22-30); CHLORIDE 105 mmol/l (95-108); CREATININE 0.8 mg/dL (0.7-1.3); GFR > 60 ML/MIN (>=60 (CALC)); GFR FOR AFR.AMER. > 60 ML/MIN (>=60 (CALC)); LIPASE 57 u/l (23-300); SGOT/AST 196 u/l (19-48); SODIUM 138 mmol/l (137-146); TOTAL PROTEIN 6.9 g/dL (6.3-8.2)
[2019-03-23] MEDS ORDERED: MONTELUKAST SOD10 MG PO (20:33)
[2019-03-23 20:38] LABS: ANION GAP 19 (6-22 (CALC)); POTASSIUM 5.9 mmol/l (3.5-5.1)
[2019-03-23 20:39] LABS: BILIRUBIN, TOTAL 0.5 mg/dL (0.0-1.4)
[2019-03-23] MEDS ORDERED: TRAMADOL HYDROC50 MG PO (21:35)
== END 2019-03-23 22:04 | disposition home or self-care (01) | DRG 392 ==
PROVIDERS: Family Medicine
DX: R10.84 Generalized abdominal pain (principal); E11.9 Type 2 diabetes mellitus without complications; I10 Essential (primary) hypertension; Z86.73 Personal history of transient ischemic attack (TIA), and cerebral infarction without residual deficits; Z79.4 Long term (current) use of insulin; Z96.89 Presence of other specified functional implants

== ENCOUNTER 2019-03-24 | Emergency (ER) | payer OTHER, MEDICARE ==
[~2019-03-24] MED LIST changes: +MONTELUKAST SOD10 MG PO
[2019-03-24 22:41] LABS: IMMATURE GRANULOCYTES 0.9 % (0.0-5.0); MEAN CELL VOLUME 87.1 fL CALC (80.0-100.0); MEAN CORPUSCULAR HGB 27.2 pG CALC (26.0-32.0); MEAN CORPUSCULAR HGB CONC 31.3 g/L CALC (32.0-36.0); NEUT# 16.52 thou/uL (1.82-7.42); RED BLOOD COUNT 2.24 mill/uL (4.70-6.10); RED CELL DISTRI WIDTH 15.6 % (11.5-15.5)
[2019-03-24 22:53] LABS: ALKALINE PHOSPHATASE 289 u/l (38-126); BUN 45 mg/dL (8-23); BUN/CREATININE RATIO 37 (12-20 (CALC)); CHLORIDE 107 mmol/l (95-108); CREATININE 1.2 mg/dL (0.7-1.3); GFR 59 ML/MIN (>=60 (CALC)); GFR FOR AFR.AMER. > 60 ML/MIN (>=60 (CALC)); SGOT/AST 261 u/l (19-48); SODIUM 136 mmol/l (137-146)
[2019-03-24 22:59] LABS: ALBUMIN 2.2 g/dL (3.2-5.0); ANION GAP 21 (6-22 (CALC)); BILIRUBIN, TOTAL 1.1 mg/dL (0.0-1.4); CARBON DIOXIDE 13 mmol/l (22-30); POTASSIUM 5.2 mmol/l (3.5-5.1); TOTAL PROTEIN 4.2 g/dL (6.3-8.2)
[2019-03-24 23:09] LABS: HEMATOCRIT 19.5 % (39.0-50.0); HEMOGLOBIN 6.1 g/dl (14.0-18.0)
[2019-03-24 23:40] LABS: URINE BLOOD DIPSTICK NEGATIVE (NEGATIVE); URINE COLOR YELLOW; URINE GLUCOSE - DIPSTICK 250 mg/dL (NEGATIVE); URINE KETONE TRACE mg/dL (NEGATIVE); URINE LEUK ESTERASE NEGATIVE (NEGATIVE); URINE NITRITE - DIPSTICK NEGATIVE (Negative); URINE PROTEIN - DIPSTICK TRACE mg/dL (NEG-TRACE); URINE SPECIFIC GRAVITY 1.025
[2019-03-24 23:53] LABS: URINE BILIRUBIN - DIPSTICK SMALL (NEGATIVE)
[2019-03-25 00:16] VITALS: BP 126/54
[2019-03-25 00:40] VITALS: BP 107/52
--- NOTE | 2019-03-26 08:29 | NUR ---
PRELIMINARY BLOOD CULTURE RESULTS OF GRAM POSITIVE COCCI GROWING IN 2/2 SETS CALLED TO NURSE SOFIYA AT [facility]. WILL FOLLOW-UP WITH FINAL RESULTS WHEN AVAILABLE.
--- NOTE | 2019-03-27 15:13 | NUR ---
FINAL BLOOD CULTURE RESULTS WERE FAXED TO NURSE PONCE AT [facility] AT [phone].
== END 2019-03-25 01:05 | disposition short-term general hospital (02) | DRG 379 ==
PROVIDERS: Family Medicine
PROC: 05HY33Z Insertion of Infusion Device into Upper Vein, Percutaneous Approach (ICD-10-PCS; principal; 2019-03-24)
PROC: 0T9B70Z Drainage of Bladder with Drainage Device, Via Natural or Artificial Opening (ICD-10-PCS; 2019-03-24)
PROC: 30233N1 Transfusion of Nonautologous Red Blood Cells into Peripheral Vein, Percutaneous Approach (ICD-10-PCS; 2019-03-25)
DX: K92.2 Gastrointestinal hemorrhage, unspecified (principal); E11.9 Type 2 diabetes mellitus without complications; I10 Essential (primary) hypertension; Z79.4 Long term (current) use of insulin; Z86.73 Personal history of transient ischemic attack (TIA), and cerebral infarction without residual deficits
CPT/HCPCS: J0692; P9016; S0164

== ENCOUNTER 2019-11-17 15:13 | Emergency (ER) | payer MEDICARE ==
[~2019-11-17] VITALS: Ht 175.3 cm; Wt 70.0 kg
[2019-11-17] MEDS ORDERED: CLOPIDOGREL75 MG PO (15:50)
[2019-11-17] MEDS ORDERED: IRON18 M1 PO (15:51)
[2019-11-17 17:30] VITALS: BP 202/85
== END 2019-11-17 17:30 | disposition home or self-care (01) ==
LOC: ED 15:13
DX: S63.502A Unspecified sprain of left wrist, initial encounter (principal); S50.811A Abrasion of right forearm, initial encounter; E11.9 Type 2 diabetes mellitus without complications; I10 Essential (primary) hypertension; W01.0XXA Fall on same level from slipping, tripping and stumbling without subsequent striking against object, initial encounter; Y92.009 Unspecified place in unspecified non-institutional (private) residence as the place of occurrence of the external cause; Z86.73 Personal history of transient ischemic attack (TIA), and cerebral infarction without residual deficits; Z79.4 Long term (current) use of insulin

== ENCOUNTER 2020-03-02 17:06 | Observation (INO) | payer OTHER, MEDICARE ==
[~2020-03-02] VITALS: Ht 175.3 cm; Wt 82.0 kg
[~2020-03-02 17:06] MED LIST changes: +CLOPIDOGREL75 MG PO; +IRON18 M1 PO
--- NOTE | 2020-03-02 17:45 | NUR ---
PT TO ROOM VIA WHEELCHAIR FOR TRIAGE. DAUGHTER AT BEDSIDE.
--- NOTE | 2020-03-02 18:50 | NUR ---
POSTERIOR EKG PERFORMED PER MD REQUEST.
--- NOTE | 2020-03-02 18:55 | NUR ---
STRAIGHT CATHED FOR SAMPLE OF URINE USING STERILE TECHNIQUE. PATIENT TOLERATED WELL
[2020-03-02 18:59] LABS: IMMATURE GRANULOCYTES 0.3 % (0.0-5.0); MEAN CELL VOLUME 85.2 fL CALC (80.0-100.0); MEAN CORPUSCULAR HGB 28.1 pG CALC (26.0-32.0); MEAN CORPUSCULAR HGB CONC 32.9 g/dL CAL (32.0-36.0); NEUT# 8.49 thou/uL (1.82-7.42); RED BLOOD COUNT 5.81 mill/uL (4.70-6.10); RED CELL DISTRI WIDTH 13.5 % (11.5-15.5)
[2020-03-02 19:08] LABS: HEMATOCRIT 49.5 % (39.0-50.0); HEMOGLOBIN 16.3 g/dl (14.0-18.0)
[2020-03-02 19:23] LABS: BUN 26 mg/dL (8-23); BUN/CREATININE RATIO 28 (12-20 (CALC)); CARBON DIOXIDE 27 mmol/l (22-30); CHLORIDE 95 mmol/l (95-108); CREATININE 0.9 mg/dL (0.7-1.3); GFR > 60 ML/MIN (>=60 (CALC)); GFR FOR AFR.AMER. > 60 ML/MIN (>=60 (CALC)); SGOT/AST 26 u/l (19-48); SODIUM 134 mmol/l (137-146)
[2020-03-02 19:30] LABS: ALBUMIN 4.7 g/dL (3.2-5.0); ALKALINE PHOSPHATASE 180 u/l (38-126); ANION GAP 17 (6-22 (CALC)); BILIRUBIN, TOTAL 0.8 mg/dL (0.0-1.4); POTASSIUM 5.3 mmol/l (3.5-5.1); TOTAL PROTEIN 8.4 g/dL (6.3-8.2)
[2020-03-02 19:42] LABS: URINE BILIRUBIN - DIPSTICK NEGATIVE (NEGATIVE); URINE BLOOD DIPSTICK NEGATIVE (NEGATIVE); URINE COLOR YELLOW; URINE GLUCOSE - DIPSTICK >=1000 mg/dL (NEGATIVE); URINE KETONE NEGATIVE (NEGATIVE); URINE LEUK ESTERASE NEGATIVE (NEGATIVE); URINE NITRITE - DIPSTICK NEGATIVE (Negative); URINE PROTEIN - DIPSTICK NEGATIVE (NEG-TRACE); URINE SPECIFIC GRAVITY 1.025; URINE UROBILINOGEN - DIPSTICK 0.2 E.U./dL (0.2)
--- NOTE | 2020-03-02 19:42 | NUR ---
PATIENT RESTING,DAUGHTER AT BEDSIDE. NO DISTRESS. CALL AGUILERA AVAILABLE
[2020-03-02] MEDS ORDERED: TRANSDERM-1 MG/3 DAY (19:50)
--- NOTE | 2020-03-02 19:53 | NUR ---
CT CALLED REGARDING STUDY,STATED IV SITE WOULD PROBABLY NOT WITH STAND CONTRAST. DR MALHOTRA,TEST ORDERED WITHOUT CONTRAST.
--- NOTE | 2020-03-02 20:59 | NUR ---
DAUGHTER AWARE OF IMPENDING ADMISSION. WAITING ON ROOM
--- NOTE | 2020-03-02 21:50 | NUR ---
report called to Keke on M/S IN SBAR format.
[2020-03-02 22:00] VITALS: BP 163/79
--- NOTE | 2020-03-02 22:05 | NUR ---
patient transferred to ct via stretcher, stable upon arrival. iv intact.
--- NOTE | 2020-03-02 22:30 | NUR ---
PT WAS ADMITTED TO FLOOR RO ROOM 260 VIA STRETCHER. PT IS ALERT WITH CONFUSION NOTED. ABLE TO MAKE SOME NEEDS KNONW WHEN ASKED. HAD BOWEL MOVEMNT UPON ARRIVING TO THE UNIT. INCONTINENT OF B/B AND INCONTINENCE CARE PROVIDED. PT HAS WET MOIST NONPRODUCTIVE COUGH NOTED. RHONCHI NOTED IN UPPER LUNG ABAD. ABDOMEN IS SOFT ANF NON TENDER AND BOWEL SOUNDS ARE ACTIVE. IV NOT FLUSHING AND REMOVED AND REPLACED WITH 22G IN RIGHT FOREARM AND FLUSHING WITH NO COMPLICATIONS NOTED. HOB ELEVATED AND CALL LIGHT WITHIN REACH. WILL CONTINUE TO OBSERVE
--- NOTE | 2020-03-03 04:51 | NUR ---
IN BED WITH EYES OPEN AND ABLE TO MAKE NEEDS KNOWN. SKIN WARM TO TOUCH. IV PLACED IN RIGHT FORARM AND TOLERATED WELL WITH 1 ATTEMPT. MD MADE AWRE AND DIET DOMNGRADED TO NECTAR THICK LIQUIDS DUE TO INCREASED COUGHING WIH SWALLOWING WELL DIET DOWNGRADED TO PUREED DIET. PT HAS NON PRODUCTIVE WET COUGH NOTED AND WHONCHI HEARD IN LUNG ABAD. HOB AND CALL LIGHT WITHIN REACH. WILL CONTINEU TO OBSERVE.
[2020-03-03 05:17] VITALS: BP 151/75
[2020-03-03 06:05] LABS: HEMATOCRIT 45.4 % (39.0-50.0); HEMOGLOBIN 14.9 g/dl (14.0-18.0); IMMATURE GRANULOCYTES 0.4 % (0.0-5.0); MEAN CORPUSCULAR HGB 28.2 pG CALC (26.0-32.0); MEAN CORPUSCULAR HGB CONC 32.8 g/dL CAL (32.0-36.0); NEUT# 5.47 thou/uL (1.82-7.42); RED BLOOD COUNT 5.28 mill/uL (4.70-6.10); RED CELL DISTRI WIDTH 13.5 % (11.5-15.5)
[2020-03-03 06:33] LABS: ANION GAP 14 (6-22 (CALC)); BUN 21 mg/dL (8-23); BUN/CREATININE RATIO 26 (12-20 (CALC)); CARBON DIOXIDE 25 mmol/l (22-30); CHLORIDE 102 mmol/l (95-108); CREATININE 0.8 mg/dL (0.7-1.3); GFR > 60 ML/MIN (>=60 (CALC)); GFR FOR AFR.AMER. > 60 ML/MIN (>=60 (CALC)); POTASSIUM 4.5 mmol/l (3.5-5.1); SODIUM 136 mmol/l (137-146)
--- NOTE | 2020-03-03 07:00 | NUR ---
REPORT RECEIVED FROM YVES SCOTT
[2020-03-03 07:45] VITALS: BP 147/75
--- NOTE | 2020-03-03 07:45 | NUR ---
PT RESTING IN SEMI FOWLERS POSITION,A&O X2 WITH GARBLED SPEECH NOTED;VS OBTAINED AND ASSESSMENT COMPLETED;PT DENIES ANY CURRENT PAIN OR DISCOMFORTS,PAIN SCALE AND REPORTING EDUCATED;RESPIRATIONS EVEN AND UNLABORED ON RA, NON-PRODUCTIVE WET COUGH NOTED;ABDOMEN SOFT ON PALPATION AND ACTIVE IN ALL 4 QUADRANTS;STRONG PEDAL PULSES;SKIN INTACT;#20G TO RFA INFUSING NS @ 100ML/HR,SITE APPEARS HEALTHY;ACCUCHECK 366, PT COVERED WITH SLIDING SCALE INSULIN PER ORDER;PT DENIES ANY ADDITIONAL NEEDS AT THIS TIME AND IS ENCOURAGED TO CALL FOR ASSISTANCE IF NEEDED;FALL PRECAUTIONS IN PLACE WITH BED IN THE LOWEST POSITION AND BED ALARM ON FOR SAFETY;CALL LIGHT IN REACH;WILL CONTINUE TO MONITOR
[2020-03-03 07:51] VITALS: BP 147/75
--- NOTE | 2020-03-03 08:07 | NUR ---
AT BEDSIDE DISCUSSING POC.
--- NOTE | 2020-03-03 08:55 | NUR ---
ST screen completed. Patient currently on a modified diet of pureed solids and nectar thick liquids. Pt would benefit from a swallow evaluation from speech pathology. Will discuss with provider.
--- NOTE | 2020-03-03 11:05 | NUR ---
CRITICAL HIGH GLUCOSE OBTAINED BY ACCHCUECK MACHINE, STAT GLUCOSE LAB ORDERED;PT REMAINS ASYMPTOMATIC;WILL CONTINUE TO MONITOR
--- NOTE | 2020-03-03 11:22 | NUR ---
LAB AT BEDSIDE
--- NOTE | 2020-03-03 12:10 | NUR ---
CALL RECEIVED FROM LAB REPORTING CRITICAL GLUCOSE OF 438. D.MIGNON ANRP NOTIFIED AND NEW ORDERS RECEIVED.
--- NOTE | 2020-03-03 12:15 | NUR ---
PT RESTING IN SEMI FOWLERS POSITION;RESPIRATIONS EVEN AND UNLABORED ON RA;PT DENIES ANY CURRENT PAIN OR DISCOMFORTS;IV FLUIDS INFUSING WITH EASE PER ORDER;PT COVERED WITH SLIDING SCALE INSULIN 6 UNITS PER ORDER AND WILL BE COVERED WITH AN ADDITIONAL 10 UNITS OF HUMILIN R IV FOR ACCUCHECK 438;PT DENIES ANY ADDITIONAL NEEDS AT THIS TIME;ENCOURAGED TO CALL FOR ASSISTANCE IF NEEDED;FALL PRECAUTIONS REMAIN IN PLACE WITH BED IN THE LOWEST POSITION AND BED ALARM ON FOR SAFETY;CALL LIGHT IN REACH;WILL CONTINUE TO MONITOR
[2020-03-03] MEDS ORDERED: DICYCLOMINE10 MG PO (12:24)
[2020-03-03] MEDS ORDERED: LANTUS100 UNIT/M SC (13:33)
--- NOTE | 2020-03-03 14:05 | NUR ---
PT RESTING IN SEMI FOWLERS POSITION WITH AID ASSISTING WITH BATH;PT INCONTINENT OF A MODERATE AMOUNT OF SOFT BROWN STOOL, SAMPLE COLLECTED PER ORDER;ACCUCHECK RE-CHECK 382;IV FLUIDS CONTINUE TO INFUSE WITH EASE PER ORDER;CALL LIGHT IN REACH;WILL CONTINUE TO MONITOR
--- NOTE | 2020-03-03 14:50 | NUR ---
ALL DISCHAGE INSTRUCTIONS PROVIDED AT THIS TIME;PT INSTRUCTED TO CONTINUE TO TAKE HOME METAMUCIL AND PECID AND MONITOR FOR GI BLEED,TAKE DICYCLOMINE NEEDED FOR CRAMPING NEEDED,F/U WITH PCP IN THE NEXT WEEK,YOU WILL BENEFIT FROM A GI SPECIALIST,CONTINUE HOME MEDICATIONS,HOME HEALTH TO ASSIST AT HOME,AND INCREASE YOUR LANTUS TO 50 UNITS IN THE AM AND 40 UNITS PM;PT VERBALIZES UNDERSTANDING AND DENIES ANY ADDITIONAL QUESTIONS OR NEEDS;WHEELCHAIR TO BE PROVIDED FOR D/C HOME;DAUGHTER TO TRANSPORT PT HOME AT APPROX 1600;WILL CONTINUE TO MONITOR
--- NOTE | 2020-03-03 15:30 | NUR ---
UPDATED DAUGHTER SRAVAN ON POC AND DISCHARGE HOME;IV SITE REMOVED FROM PT WITH CATHETER INTACT;PT DENIES ANY ADDITIONAL NEEDS OR QUESTIONS;WHEELCHAIR TO BE PROVIDED FOR D/C HOME;DAUGHTER TO TRANSPORT PT HOME;WILL CONTINUE TO MONITOR
--- NOTE | 2020-03-03 16:10 | NUR ---
Discharge instructions given. Patient verbalizes understanding of same. Discharged in stable condition via Wheelchair to Home with family. All belongings sent with pt. PT TRANSPORTED TO [facility] IN STABLE CONDITION VIA WHEELCHAIR ACCOMPANIED BY ROCK DURANT;ALL BELONGINGS LEFT WITH PT;DAUGHTER TO TRANSPORT PT HOME.
== END 2020-03-03 16:08 | disposition home health service (06) | DRG 392 ==
LOC: ED 17:06 → ED-I 21:00 → ED 21:09 → MS2 21:10
PROVIDERS: Family Medicine; ADMIT Internal Medicine; ATTEND Internal Medicine
DX: R10.84 Generalized abdominal pain (principal); E11.65 Type 2 diabetes mellitus with hyperglycemia; E87.5 Hyperkalemia; I10 Essential (primary) hypertension; J44.9 Chronic obstructive pulmonary disease, unspecified; I25.10 Atherosclerotic heart disease of native coronary artery without angina pectoris; I69.991 Dysphagia following unspecified cerebrovascular disease; R13.10 Dysphagia, unspecified; K57.30 Diverticulosis of large intestine without perforation or abscess without bleeding; Z79.4 Long term (current) use of insulin; Z87.891 Personal history of nicotine dependence; Z20.822 Contact with and (suspected) exposure to COVID-19

== ENCOUNTER 2021-04-27 16:27 | Inpatient (IN) | payer OTHER, MEDICARE ==
[~2021-04-27] VITALS: Ht 175.3 cm; Wt 82.0 kg
[2021-04-27] VITALS (14 sets, daily range): BP systolic 153–195; BP diastolic 74–94
[~2021-04-27 16:27] MED LIST changes: +DICYCLOMINE10 MG PO; +TRANSDERM-1 MG/3 DAY
[2021-04-27 17:11] LABS: GFR > 60 ML/MIN (>=60 (CALC)); GFR FOR AFR.AMER. > 60 ML/MIN (>=60 (CALC))
[2021-04-27 17:13] LABS: HEMATOCRIT 44.3 % (39.0-50.0); IMMATURE GRANULOCYTES 0.2 % (0.0-5.0); MEAN CELL VOLUME 88.6 fL CALC (80.0-100.0); MEAN CORPUSCULAR HGB CONC 31.6 g/dL CAL (32.0-36.0); NEUT# 7.63 thou/uL (1.82-7.42); RED CELL DISTRI WIDTH 14.3 % (11.5-15.5)
[2021-04-27 17:28] LABS: ALBUMIN 4.3 g/dL (3.2-5.0); ALKALINE PHOSPHATASE 146 u/l (38-126); ANION GAP 13 (6-22 (CALC)); BILIRUBIN, TOTAL 0.5 mg/dL (0.0-1.4); BUN 14 mg/dL (8-23); BUN/CREATININE RATIO 15 (12-20 (CALC)); CARBON DIOXIDE 27 mmol/l (22-30); CHLORIDE 106 mmol/l (95-108); CREATININE 0.9 mg/dL (0.7-1.3); ETHYL ALCOHOL 0 mg/dl (0-30); GFR > 60 ML/MIN (>=60 (CALC)); GFR FOR AFR.AMER. > 60 ML/MIN (>=60 (CALC)); POTASSIUM 3.9 mmol/l (3.5-5.1); SGOT/AST 34 u/l (19-48); SODIUM 142 mmol/l (137-146); TOTAL PROTEIN 8.2 g/dL (6.3-8.2)
[2021-04-27 17:34] LABS: ACT PARTIAL THROMBO TIME 25.1 SECONDS (20.0-32.5); INTERNATIONAL NORMALIZED RATIO 0.9 RATIO (0.7-1.3); PROTHROMBIN TIME 9.7 SECONDS (9.0-12.5)
[2021-04-27 19:39] LABS: C-REACTIVE PROTEIN 0.8 mg/dL (0-0.9); MAGNESIUM 1.7 mg/dL (1.6-2.3)
[2021-04-27] MEDS ORDERED: LANTUS100 UNIT SC (20:08)
[2021-04-27] MEDS ORDERED: METFORMIN HCL500 M1 PO (20:17)
[2021-04-27] MEDS ORDERED: MULTIVITAMI9 PO (20:17)
[2021-04-28] VITALS (38 sets, daily range): BP systolic 123–188; BP diastolic 65–113
[2021-04-28 07:19] LABS: HEMATOCRIT 45.3 % (39.0-50.0); HEMOGLOBIN 14.2 g/dl (14.0-18.0); MEAN CELL VOLUME 87.8 fL CALC (80.0-100.0); MEAN CORPUSCULAR HGB 27.5 pG CALC (26.0-32.0); MEAN CORPUSCULAR HGB CONC 31.3 g/dL CAL (32.0-36.0); RED BLOOD COUNT 5.16 mill/uL (4.70-6.10); RED CELL DISTRI WIDTH 14.4 % (11.5-15.5)
[2021-04-28 07:36] LABS: ANION GAP 14 (6-22 (CALC)); BUN 14 mg/dL (8-23); BUN/CREATININE RATIO 17 (12-20 (CALC)); CALCULATED LDLCHOLESTEROL 108 mg/dL (62-129 (CALC)); CARBON DIOXIDE 24 mmol/l (22-30); CHLORIDE 108 mmol/l (95-108); CHOLESTEROL HDL RATIO 4.9 (<4.4 (CALC)); CREATININE 0.8 mg/dL (0.7-1.3); GFR > 60 ML/MIN (>=60 (CALC)); GFR FOR AFR.AMER. > 60 ML/MIN (>=60 (CALC)); HDL CHOLESTEROL 35 mg/dL (>=40); MAGNESIUM 1.8 mg/dL (1.6-2.3); SODIUM 142 mmol/l (137-146); TOTAL CHOLESTEROL 169 mg/dl (0-199); TOTAL TRIGLYCERIDES 131 mg/dl (30-149); VLDL CHOLESTROL 26 mg/dl (0-38 (CALC))
[2021-04-29 02:00] VITALS: BP 132/68
[2021-04-29 04:00] VITALS: BP 134/75
[2021-04-29 05:43] LABS: HEMOGLOBIN 14.1 g/dl (14.0-18.0); MEAN CELL VOLUME 87.7 fL CALC (80.0-100.0); MEAN CORPUSCULAR HGB 27.5 pG CALC (26.0-32.0); MEAN CORPUSCULAR HGB CONC 31.3 g/dL CAL (32.0-36.0); RED BLOOD COUNT 5.13 mill/uL (4.70-6.10); RED CELL DISTRI WIDTH 14.6 % (11.5-15.5)
[2021-04-29 05:48] LABS: BUN 22 mg/dL (8-23); BUN/CREATININE RATIO 23 (12-20 (CALC)); CARBON DIOXIDE 24 mmol/l (22-30); CHLORIDE 107 mmol/l (95-108); GFR > 60 ML/MIN (>=60 (CALC)); GFR FOR AFR.AMER. > 60 ML/MIN (>=60 (CALC)); SODIUM 141 mmol/l (137-146)
[2021-04-29 05:51] LABS: ANION GAP 14 (6-22 (CALC)); POTASSIUM 4.2 mmol/l (3.5-5.1)
[2021-04-29 08:01] VITALS: BP 142/69
[2021-04-29 10:00] VITALS: BP 150/71
[2021-04-29 12:33] VITALS: BP 121/70
== END 2021-04-29 13:03 | disposition home health service (06) | DRG 69 ==
LOC: ED 16:27 → ED-I 18:00 → ED 18:25 → ICU 18:26
PROVIDERS: Hospitalist; Nurse Practitioner; ADMIT Internal Medicine; ATTEND Internal Medicine
DX: G45.9 Transient cerebral ischemic attack, unspecified (principal); I10 Essential (primary) hypertension; E11.9 Type 2 diabetes mellitus without complications; I69.391 Dysphagia following cerebral infarction; R13.10 Dysphagia, unspecified; I69.322 Dysarthria following cerebral infarction; I25.10 Atherosclerotic heart disease of native coronary artery without angina pectoris; J44.9 Chronic obstructive pulmonary disease, unspecified; E78.5 Hyperlipidemia, unspecified; F03.90 Unspecified dementia, unspecified severity, without behavioral disturbance, psychotic disturbance, mood disturbance, and anxiety; M10.9 Gout, unspecified; Z79.82 Long term (current) use of aspirin; Z85.46 Personal history of malignant neoplasm of prostate; Z79.4 Long term (current) use of insulin; Z92.3 Personal history of irradiation; Z87.891 Personal history of nicotine dependence; Z66 Do not resuscitate; Z20.822 Contact with and (suspected) exposure to COVID-19
CPT/HCPCS: J1650; S0164

== ENCOUNTER 2021-07-07 08:53 | Inpatient (IN) | payer OTHER, MEDICARE ==
[~2021-07-07] VITALS: Ht 175.3 cm; Wt 83.0 kg
[2021-07-07] VITALS (17 sets, daily range): BP systolic 134–202; BP diastolic 64–99
[~2021-07-07 08:53] MED LIST changes: +LANTUS100 UNIT SC; +METFORMIN HCL500 M1 PO; +MULTIVITAMI9 PO
--- NOTE | 2021-07-07 09:13 | NUR ---
PATIENT TO ROOM VIA WHEELCHAIR, ABLE TO AMBULATE TO STRETCHER WITH ASSISTANCE. GLUCOSE 34 ON ARRIVAL. DAUGHTER AT BEDSIDE FOR HISTORY. PATIENT POOR HISTORIAN
[2021-07-07 09:15] LABS: HEMATOCRIT 43.8 % (39.0-50.0); IMMATURE GRANULOCYTES 0.4 % (0.0-5.0); MEAN CELL VOLUME 84.9 fL CALC (80.0-100.0); MEAN CORPUSCULAR HGB 27.1 pG CALC (26.0-32.0); NEUT# 9.57 thou/uL (1.82-7.42); RED BLOOD COUNT 5.16 mill/uL (4.70-6.10); RED CELL DISTRI WIDTH 15.5 % (11.5-15.5)
--- NOTE | 2021-07-07 09:20 | NUR ---
REPEAT BGL IS 99.
--- NOTE | 2021-07-07 09:28 | NUR ---
PATIENT GIVEN ORANGE JUICE X 2 AND A BREAKFAST TRAY. FEEDING HIMSELF NOW.
[2021-07-07 09:43] LABS: ALBUMIN 4.4 g/dL (3.2-5.0); ALKALINE PHOSPHATASE 155 u/l (38-126); ANION GAP 12 (6-22 (CALC)); BILIRUBIN, TOTAL 0.5 mg/dL (0.0-1.4); BUN 17 mg/dL (8-23); BUN/CREATININE RATIO 19 (12-20 (CALC)); CARBON DIOXIDE 21 mmol/l (22-30); CHLORIDE 115 mmol/l (95-108); CREATININE 0.9 mg/dL (0.7-1.3); GFR > 60 ML/MIN (>=60 (CALC)); GFR FOR AFR.AMER. > 60 ML/MIN (>=60 (CALC)); SGOT/AST 31 u/l (19-48); SODIUM 145 mmol/l (137-146); TOTAL PROTEIN 8.1 g/dL (6.3-8.2)
[2021-07-07 09:46] LABS: POTASSIUM 2.6 mmol/l (3.5-5.1)
--- NOTE | 2021-07-07 10:37 | NUR ---
RECHECK OF BGL IS 111. STRAIGHT CATH URINE SPECIMEN SENT TO LAB.
[2021-07-07 10:50] LABS: URINE BILIRUBIN - DIPSTICK NEGATIVE (NEGATIVE); URINE BLOOD DIPSTICK NEGATIVE (NEGATIVE); URINE COLOR YELLOW; URINE GLUCOSE - DIPSTICK NEGATIVE (NEGATIVE); URINE KETONE NEGATIVE (NEGATIVE); URINE LEUK ESTERASE NEGATIVE (NEGATIVE); URINE PROTEIN - DIPSTICK 100 mg/dL (NEG-TRACE); URINE SPECIFIC GRAVITY >=1.030
[2021-07-07 10:51] LABS: URINE NITRITE - DIPSTICK NEGATIVE (Negative)
[2021-07-07 10:58] LABS: URINE RBC 0-2 RBC/hpf (0-5); URINE WBC 0-2 WBC/hpf (0-5)
--- NOTE | 2021-07-07 11:31 | NUR ---
THIS RN TO BEDSIDE TO ATTEMPT 2ND IV. INTRODUCED SELF TO PT AND DAUGHTER AT BEDSIDE. PT IS AT BASELINE PER DAUGHTER AND IS NAD. IV OBTAINED AND CULTURES DRAWN. TOLERATED WELL
--- NOTE | 2021-07-07 11:33 | NUR ---
AWAITING ANTIBIOTIC FROM PHARMACY AT THIS TIME. DR WHEELER AWARE
--- NOTE | 2021-07-07 14:12 | NUR ---
PTS BG 105 AT THIS TIME. DAUGHTER NOW AT BEDSIDE, PT PLACED ON TELE MONITOR FOR TRANSPORT TO ROOM 263. PT TRANSFERRED ON HIS OWN TO HOSPITAL BED, RPT GIVEN AT THE BEDSIDE TO SONIA MARINELLI. ALL QUESTIONS ADDRESSED. PT AT BASELINE IN NAD, FOOD TRAY GIVEN
--- NOTE | 2021-07-07 15:26 | NUR ---
PATIENT ARRIVED TO FLOOR FROM ER AT 1400. ORIENTED TO ROOM AND ENVIRONMENT. VITALS STABLE BS 115, NO C/O PAIN. ASSESSMENT COMPLETED AND DOCUMENTED.
--- NOTE | 2021-07-07 19:00 | NUR ---
PATIENT LAYING IN BED AT THIS TIME ALERT AND ORIENTED X 3 AT THIS TIME. PATIENT DENIES ANY PAIN. RADHA PRESENTS WITH TWO IV SITES ONE IS LAC #18 AND THE OTHER IS A #20 RIGHT FOREARM BOTH ARE SALINE LOCKED AT THIS TIME AND FLUSH WELL. PATIENT PRESENTS WITH SLOW REACTION TO QUESTIONS BUT DOES ANSWER APPROPIATELY. PATIENTS LUNGS SOUNDS ARE CLEAR AT THIS TIME. TELE MONIOTOR ON AND BEING MONITORED BY ED AT THIS TIME. SIDERAILS ARE UP CALL LIGHT IS WITHIN REACH.
--- NOTE | 2021-07-07 22:56 | NUR ---
PATIENT GIVEN 10MG OF HYDRALAZINE FOR BP OF 171/75 AT THIS TIME PER ORDER. WILL CONTINUE TO MONITOR BP.
[2021-07-08 00:15] VITALS: BP 159/81
--- NOTE | 2021-07-08 00:15 | NUR ---
PATIENT RESTING IN BED AT THIS TIME. DENIES ANY NEEDS. TELE ON AND WILL CONTINUE TO MONITOR. SIDERAILS ARE UP CALL LIGHT WITHIN REACH. BP RECHECK AT THIS TIME IS 159/81. WILL CONTINUE TO MONITOR.
--- NOTE | 2021-07-08 03:50 | NUR ---
PATIENT LAYING IN BED WATCHING TV AT THIS TIME. PATIENT DENIES ANY PAIN AND OR NEEDS CURRENTLY. TELE REMAINS IN PLACE AND BEING MONITORED BY ED. SIDERAILS ARE UP CALL LIGHT WITHIN REACH.
[2021-07-08 04:00] VITALS: BP 171/78
[2021-07-08 04:24] VITALS: BP 171/78
[2021-07-08 05:04] LABS: HEMATOCRIT 44.4 % (39.0-50.0); HEMOGLOBIN 13.7 g/dl (14.0-18.0); IMMATURE GRANULOCYTES 0.2 % (0.0-5.0); MEAN CELL VOLUME 87.2 fL CALC (80.0-100.0); MEAN CORPUSCULAR HGB 26.9 pG CALC (26.0-32.0); MEAN CORPUSCULAR HGB CONC 30.9 g/dL CAL (32.0-36.0); NEUT# 11.1 thou/uL (1.82-7.42); RED BLOOD COUNT 5.09 mill/uL (4.70-6.10); RED CELL DISTRI WIDTH 15.2 % (11.5-15.5)
[2021-07-08 05:44] VITALS: BP 182/72
--- NOTE | 2021-07-08 05:48 | NUR ---
10MG OF HYDRALAZINE GIVEN AT THIS TIME FOR BP OF 171/78 WILL CONTINUE TO MONITOR.
[2021-07-08 06:54] VITALS: BP 158/71
[2021-07-08 07:05] LABS: BUN 18 mg/dL (8-23); BUN/CREATININE RATIO 27 (12-20 (CALC)); CHLORIDE 110 mmol/l (95-108); CREATININE 0.7 mg/dL (0.7-1.3); GFR > 60 ML/MIN (>=60 (CALC)); GFR FOR AFR.AMER. > 60 ML/MIN (>=60 (CALC)); SODIUM 138 mmol/l (137-146)
[2021-07-08 07:06] LABS: ANION GAP 17 (6-22 (CALC)); CARBON DIOXIDE 16 mmol/l (22-30); POTASSIUM 5.4 mmol/l (3.5-5.1)
--- NOTE | 2021-07-08 08:00 | NUR ---
PATIENT IS A/OX3, 3MM PERRL BILATERAL EYES. VITAL SIGNS ARE STABLE. SLOW WITH SPEECH BUT IT'S NOT SLURRED. ITS WITHIN HIS NORMAL. CLEAR LUNG SOUNDS. ACTIVE BOWEL SOUNDS. STRONG/EQUAL HAND CLINICAL SUPPORT ASSOCIATE. NO ARM OR LEG DRIFTS. DENIES PAIN AT THIS TIME. STATED HE WAS "HAPPY". NO EDEMA AT THIS TIME. COOL/DRY SKIN. SMALL SCATTERED BRUSING. PATIENT IS NOT SOILED AT THIS TIME, DOES WEAR A BRIEF. SAFETY MEASURES IN PLACED. CALL LIGHT IN REACH. WILL CONTINUE TO MONITOR PER HOSPITAL'S POLICY.
[2021-07-08 08:37] VITALS: BP 158/71
[2021-07-08] MEDS ORDERED: MOXIFLOXACIN H400 MG PO (10:17)
--- NOTE | 2021-07-08 11:14 | NUR ---
CALLED SRAVAN, DAUGHTER, INFORMED HER ABOUT HIS DISCHARGE, SHE STATED SHE WILL BE HERE AFTER 1200, TO ALLOW HIM TO EACH LUNCH PRIOR TO LEAVING. INFORMED PATIENT.
--- NOTE | 2021-07-08 12:30 | NUR ---
DISCHARGE PAPERWORK REVIEWED WITH PATIENT AND HIS DAUGHTER AT BEDSIDE. DISCHARGE PAPER WAS SIGNED. IV'S TAKEN OUT.
--- NOTE | 2021-07-08 12:50 | NUR ---
PATIENT WAS WHEELCHAIRED DOWN TO HIS DAUGHTER'S CAR. SAFELY TRANSPORTED.
--- NOTE | 2021-07-10 14:43 | NUR ---
Post discharge pneumonia follow up call completed today, 07/10/21. Spoke to pt's daughter. She states pt is doing well. No fever, chills, or SOB asince discharge. Pt. is taking prescribed medication without issue. Daughter states pt has had some mild diarrhea, no dehydration. She is monitoring closely. Follow up appt with PCP has not been scheduled. Daughter intends to schedule appt today. No needs or concerns voiced at this time. Appreciataive of call.
== END 2021-07-08 12:46 | disposition home or self-care (01) | DRG 179 ==
LOC: ED 08:53 → ED-I 11:07 → ED 11:23 → MS2 11:24
PROVIDERS: Family Medicine; Nurse Practitioner; ADMIT Internal Medicine; ATTEND Internal Medicine
PROC: 0T9B70Z Drainage of Bladder with Drainage Device, Via Natural or Artificial Opening (ICD-10-PCS; principal; 2021-07-07)
DX: J69.0 Pneumonitis due to inhalation of food and vomit (principal); E87.6 Hypokalemia; E11.649 Type 2 diabetes mellitus with hypoglycemia without coma; T38.3X5A Adverse effect of insulin and oral hypoglycemic [antidiabetic] drugs, initial encounter; I10 Essential (primary) hypertension; J44.9 Chronic obstructive pulmonary disease, unspecified; I25.10 Atherosclerotic heart disease of native coronary artery without angina pectoris; I69.391 Dysphagia following cerebral infarction; R13.10 Dysphagia, unspecified; I69.320 Aphasia following cerebral infarction; E78.5 Hyperlipidemia, unspecified; F32.A Depression, unspecified; M10.9 Gout, unspecified; Z79.4 Long term (current) use of insulin; Z85.46 Personal history of malignant neoplasm of prostate; Z87.891 Personal history of nicotine dependence; Z88.0 Allergy status to penicillin; Z20.822 Contact with and (suspected) exposure to COVID-19
CPT/HCPCS: J1650; J3475; S0073

== ENCOUNTER 2021-11-08 21:42 | Observation (INO) | payer OTHER, MEDICARE ==
[~2021-11-08] VITALS: Ht 175.3 cm; Wt 84.0 kg
[2021-11-08] VITALS (8 sets, daily range): BP systolic 125–161; BP diastolic 44–71
[~2021-11-08 21:42] MED LIST changes: +MOXIFLOXACIN H400 MG PO
--- NOTE | 2021-11-08 22:16 | NUR ---
PT GIVEN WRAP/PUDDING.
[2021-11-08 22:59] LABS: HEMATOCRIT 41.5 % (39.0-50.0); HEMOGLOBIN 13.5 g/dl (14.0-18.0); IMMATURE GRANULOCYTES 0.2 % (0.0-5.0); MEAN CORPUSCULAR HGB 27.3 pG CALC (26.0-32.0); MEAN CORPUSCULAR HGB CONC 32.5 g/dL CAL (32.0-36.0); NEUT# 5.96 thou/uL (1.82-7.42); RED BLOOD COUNT 4.94 mill/uL (4.70-6.10); RED CELL DISTRI WIDTH 14.7 % (11.5-15.5)
[2021-11-08 23:08] LABS: ALKALINE PHOSPHATASE 148 u/l (38-126); BILIRUBIN, TOTAL 0.5 mg/dL (0.0-1.4); BUN 18 mg/dL (8-23); BUN/CREATININE RATIO 16 (12-20 (CALC)); CHLORIDE 108 mmol/l (95-108); CREATININE 1.2 mg/dL (0.7-1.3); GFR FOR AFR.AMER. > 60 ML/MIN (>=60 (CALC)); GFR OTHER RACES 59 ML/MIN (>=60 (CALC)); POTASSIUM 4.4 mmol/l (3.5-5.1); SGOT/AST 29 u/l (19-48); SODIUM 141 mmol/l (137-146); TOTAL PROTEIN 7.5 g/dL (6.3-8.2)
[2021-11-08 23:12] LABS: ANION GAP 14 (6-22 (CALC)); CARBON DIOXIDE 23 mmol/l (22-30)
--- NOTE | 2021-11-08 23:49 | NUR ---
PT TO BE ADMITTED. DAUGHTER AWARE.
--- NOTE | 2021-11-08 23:50 | NUR ---
POISON CONTROL NOT CONTACTED IS NOT INDICATED.
[2021-11-09] VITALS (12 sets, daily range): BP systolic 135–169; BP diastolic 56–71
--- NOTE | 2021-11-09 01:10 | NUR ---
PT ARRIVED TO MED SURG UNIT VIA STRETCHER ACCOMPANIED BY ED NURSE. PT SELF AMBULATED TO THE BED USING HIS CANE. HE IS QUICK MOVING. ENCOURAGED TO TAKE HIS TIME. HE APPEARS TO BE STABLE. V/S AND GLUCOSE ASSESSED AT THIS TIME PER GLUCOMETER 109. BP ELEVATED AT 169 SBP, WILL REASSESS AFTER PT HAS BEEN SETTLED. HE HAS BEEN ORIENTED TO ROOM, CALL SYSTEM, LIGHTS, BED AND SAFETY MEASURES. HE IS EXTREMELY SIOUX AND VISUALLY IMPAIRED, SIGNS PLACED ABOVE BED. DUE TO EXTREME [place]OUX HE HAD DIFFICULTY ANSWERING SOME ADMISSION QUESTIONS, I ATTEMPTED TO WRITE SEVERAL QUESTIONS, BUT HE SAID HE COULD NOT READ BECAUSE OF VISUAL READING IMPAIRMENT AND DOES NOT HAVE GLASSESS WITH HIM. CALL LIGHT IS AT SIDE.
--- NOTE | 2021-11-09 01:40 | NUR ---
SNACK W/JUICE PROVIDED. IVF ARE RUNNING TO SITE IN LFA/SITE APPEARS HEALTHY.
--- NOTE | 2021-11-09 04:00 | NUR ---
PT IS SLEEPING, NO S/O DISTRESS, BREATHS EVEN AND NON-LABORED. BED ALARM IS ON FOR SAFETY AND CALL LIGHT AT SIDE.
--- NOTE | 2021-11-09 04:42 | NUR ---
POISON CONTROL CALLED TO DISCUSS PT STATUS AND OBTAIN UPDATE, PROVIDED. NO NEW RECOMMENDATIONS.
--- NOTE | 2021-11-09 06:17 | NUR ---
INSULIN SLIDING SCALE HELD FOR NORMAL BLOOD SUGAR OF 129. PT IS AWAKE, TALKING, WATCHING TV, DENIES NEEDS.
--- NOTE | 2021-11-09 11:00 | NUR ---
PT IN BED AWAKE, A/O X3 SPEECH SLURRED AT BASELINE, PT INSULIN HELD DUE TO NORMAL BS TODAY, NO DISTRESS NOTED, BED ALARM ON AND IN LOW POSITION CALL LIGHT IN REACH
--- NOTE | 2021-11-09 15:34 | NUR ---
Discharge instructions given. Patient verbalizes understanding of same. Discharged in .stable condition via Wheelchair to Home with staff. All belongings sent with pt. Home with [facility] home health.
== END 2021-11-09 15:31 | disposition home health service (06) | DRG 918 ==
LOC: ED 21:42 → ED-I 23:42 → ED 23:55 → MS2 23:56
PROVIDERS: Family Medicine; ADMIT Internal Medicine; ATTEND Internal Medicine
DX: T38.3X1A Poisoning by insulin and oral hypoglycemic [antidiabetic] drugs, accidental (unintentional), initial encounter (principal); E11.9 Type 2 diabetes mellitus without complications; I10 Essential (primary) hypertension; E78.5 Hyperlipidemia, unspecified; J44.9 Chronic obstructive pulmonary disease, unspecified; I25.10 Atherosclerotic heart disease of native coronary artery without angina pectoris; I69.30 Unspecified sequelae of cerebral infarction; M10.9 Gout, unspecified; Y92.009 Unspecified place in unspecified non-institutional (private) residence as the place of occurrence of the external cause; Z79.4 Long term (current) use of insulin; Z85.46 Personal history of malignant neoplasm of prostate; Z92.3 Personal history of irradiation; Z87.891 Personal history of nicotine dependence; Z20.822 Contact with and (suspected) exposure to COVID-19

== ENCOUNTER 2022-01-23 20:34 | Emergency (ER) | payer OTHER, MEDICARE ==
[~2022-01-23] VITALS: Ht 175.3 cm; Wt 84.0 kg
[2022-01-23] VITALS (13 sets, daily range): BP systolic 119–212; BP diastolic 53–107
[2022-01-23] MEDS ORDERED: METOPROL TAR100 MG PO (21:00)
[2022-01-23 21:27] LABS: HEMATOCRIT 46.3 % (39.0-50.0); HEMOGLOBIN 14.8 g/dl (14.0-18.0); IMMATURE GRANULOCYTES 0.1 % (0.0-5.0); MEAN CELL VOLUME 84.6 fL CALC (80.0-100.0); MEAN CORPUSCULAR HGB 27.1 pG CALC (26.0-32.0); NEUT# 5.82 thou/uL (1.82-7.42); RED BLOOD COUNT 5.47 mill/uL (4.70-6.10); RED CELL DISTRI WIDTH 15.2 % (11.5-15.5)
[2022-01-23 22:24] LABS: ALBUMIN 4.1 g/dL (3.2-5.0); ALKALINE PHOSPHATASE 155 u/l (38-126); ANION GAP 16 (6-22 (CALC)); BILIRUBIN, TOTAL 0.5 mg/dL (0.0-1.4); BUN 24 mg/dL (8-23); BUN/CREATININE RATIO 29 (12-20 (CALC)); CARBON DIOXIDE 24 mmol/l (22-30); CHLORIDE 108 mmol/l (95-108); CPK 50 u/l (52-200); CREATININE 0.8 mg/dL (0.7-1.3); GFR FOR AFR.AMER. > 60 ML/MIN (>=60 (CALC)); GFR OTHER RACES > 60 ML/MIN (>=60 (CALC)); POTASSIUM 4.2 mmol/l (3.5-5.1); SGOT/AST 46 u/l (19-48); SODIUM 143 mmol/l (137-146); TOTAL PROTEIN 7.5 g/dL (6.3-8.2)
[2022-01-23 22:33] LABS: MYOGLOBIN 67 ng/mL (0 - 121)
[2022-01-23 22:55] LABS: TSH, 3RD GENERATION 8.41 uIU/mL (0.47 - 4.68)
[2022-01-23 23:53] LABS: URINE BILIRUBIN - DIPSTICK NEGATIVE (NEGATIVE); URINE BLOOD DIPSTICK NEGATIVE (NEGATIVE); URINE COLOR YELLOW; URINE GLUCOSE - DIPSTICK NEGATIVE (NEGATIVE); URINE KETONE NEGATIVE (NEGATIVE); URINE LEUK ESTERASE NEGATIVE (NEGATIVE); URINE PROTEIN - DIPSTICK NEGATIVE (NEG-TRACE); URINE SPECIFIC GRAVITY 1.025
[2022-01-23 23:58] LABS: URINE NITRITE - DIPSTICK NEGATIVE (Negative)
[2022-01-24] MEDS ORDERED: GLYCOPYRROL PO (00:18)
[2022-01-24 00:47] VITALS: BP 119/53
== END 2022-01-24 01:07 | disposition home or self-care (01) | DRG 305 ==
LOC: ED 20:34
PROVIDERS: Family Medicine
DX: I10 Essential (primary) hypertension (principal); K11.7 Disturbances of salivary secretion; I69.391 Dysphagia following cerebral infarction; R13.10 Dysphagia, unspecified; I69.322 Dysarthria following cerebral infarction; Z20.822 Contact with and (suspected) exposure to COVID-19

== ENCOUNTER 2022-03-10 08:24 | Inpatient (IN) | payer OTHER, MEDICARE ==
[~2022-03-10] VITALS: Ht 175.3 cm; Wt 81.0 kg
[2022-03-10] VITALS (14 sets, daily range): BP systolic 120–155; BP diastolic 45–77
[~2022-03-10 08:24] MED LIST changes: +GLYCOPYRROL PO; +METOPROL TAR100 MG PO
[2022-03-10] MEDS ORDERED: LOSARTAN POTASS50 MG PO (09:20)
[2022-03-10 09:21] LABS: BASO% 0.1 % (0-3); EOS% 1.4 % (0-8); HEMATOCRIT 40.5 % (39.0-50.0); IMMATURE GRANULOCYTES 0.3 % (0.0-5.0); LYMPH% 10.1 % (15-41); MEAN CELL VOLUME 85.1 fL CALC (80.0-100.0); MEAN CORPUSCULAR HGB 26.9 pG CALC (26.0-32.0); MEAN CORPUSCULAR HGB CONC 31.6 g/dL CAL (32.0-36.0); MONO% 13.4 % (2-13); NEUT# 5.34 thou/uL (1.82-7.42); NEUT% 74.7 % (42-76); RED BLOOD COUNT 4.76 mill/uL (4.70-6.10); RED CELL DISTRI WIDTH 15.6 % (11.5-15.5)
[2022-03-10] MEDS ORDERED: TAM75CAP PO (09:21)
[2022-03-10] MEDS ORDERED: NOVOLO1 SC (09:22)
[2022-03-10 09:27] LABS: ALBUMIN 3.7 g/dL (3.2-5.0); ALKALINE PHOSPHATASE 158 u/l (38-126); ANION GAP 12 (6-22 (CALC)); BILIRUBIN, TOTAL 0.6 mg/dL (0.0-1.4); BUN 25 mg/dL (8-23); BUN/CREATININE RATIO 22 (12-20 (CALC)); CARBON DIOXIDE 22 mmol/l (22-30); CHLORIDE 111 mmol/l (95-108); CREATININE 1.1 mg/dL (0.7-1.3); GFR FOR AFR.AMER. > 60 ML/MIN (>=60 (CALC)); GFR OTHER RACES > 60 ML/MIN (>=60 (CALC)); HEMOGLOBIN 12.8 g/dl (14.0-18.0); POTASSIUM 3.9 mmol/l (3.5-5.1); SGOT/AST 34 u/l (19-48); SODIUM 141 mmol/l (137-146); TOTAL PROTEIN 7.1 g/dL (6.3-8.2)
[2022-03-10 09:28] LABS: URINE BILIRUBIN - DIPSTICK NEGATIVE (NEGATIVE); URINE BLOOD DIPSTICK NEGATIVE (NEGATIVE); URINE COLOR YELLOW; URINE GLUCOSE - DIPSTICK NEGATIVE (NEGATIVE); URINE KETONE NEGATIVE (NEGATIVE); URINE LEUK ESTERASE NEGATIVE (NEGATIVE); URINE PH 5.5 (4.5-8.0); URINE PROTEIN - DIPSTICK TRACE mg/dL (NEG-TRACE); URINE SPECIFIC GRAVITY 1.025
[2022-03-10 09:29] LABS: URINE NITRITE - DIPSTICK NEGATIVE (Negative)
[2022-03-11] VITALS (9 sets, daily range): BP systolic 147–213; BP diastolic 53–88
[2022-03-11 06:04] LABS: BASO% 0.2 % (0-3); HEMATOCRIT 42.3 % (39.0-50.0); HEMOGLOBIN 13.4 g/dl (14.0-18.0); IMMATURE GRANULOCYTES 0.2 % (0.0-5.0); LYMPH% 12.2 % (15-41); MEAN CELL VOLUME 86.3 fL CALC (80.0-100.0); MEAN CORPUSCULAR HGB 27.3 pG CALC (26.0-32.0); MEAN CORPUSCULAR HGB CONC 31.7 g/dL CAL (32.0-36.0); NEUT# 6.66 thou/uL (1.82-7.42); NEUT% 77.4 % (42-76); RED BLOOD COUNT 4.9 mill/uL (4.70-6.10); RED CELL DISTRI WIDTH 15.8 % (11.5-15.5)
[2022-03-11 06:33] LABS: ALBUMIN 3.7 g/dL (3.2-5.0); ALKALINE PHOSPHATASE 160 u/l (38-126); ANION GAP 15 (6-22 (CALC)); BILIRUBIN, TOTAL 0.4 mg/dL (0.0-1.4); BUN 23 mg/dL (8-23); BUN/CREATININE RATIO 29 (12-20 (CALC)); CARBON DIOXIDE 22 mmol/l (22-30); CHLORIDE 111 mmol/l (95-108); CREATININE 0.8 mg/dL (0.7-1.3); GFR FOR AFR.AMER. > 60 ML/MIN (>=60 (CALC)); GFR OTHER RACES > 60 ML/MIN (>=60 (CALC)); POTASSIUM 4.8 mmol/l (3.5-5.1); SGOT/AST 36 u/l (19-48); SODIUM 143 mmol/l (137-146); TOTAL PROTEIN 6.7 g/dL (6.3-8.2)
[2022-03-12] VITALS (10 sets, daily range): BP systolic 152–189; BP diastolic 66–84
[2022-03-13 00:17] VITALS: BP 147/54
[2022-03-13 04:26] VITALS: BP 148/70
[2022-03-13 06:23] LABS: BASO% 0.1 % (0-3); EOS% 2.7 % (0-8); HEMATOCRIT 42.7 % (39.0-50.0); HEMOGLOBIN 13.7 g/dl (14.0-18.0); IMMATURE GRANULOCYTES 0.6 % (0.0-5.0); LYMPH% 26.3 % (15-41); MEAN CELL VOLUME 85.1 fL CALC (80.0-100.0); MEAN CORPUSCULAR HGB 27.3 pG CALC (26.0-32.0); MEAN CORPUSCULAR HGB CONC 32.1 g/dL CAL (32.0-36.0); MONO% 13.1 % (2-13); NEUT# 3.99 thou/uL (1.82-7.42); NEUT% 57.2 % (42-76); RED BLOOD COUNT 5.02 mill/uL (4.70-6.10); RED CELL DISTRI WIDTH 15.7 % (11.5-15.5)
[2022-03-13 06:31] LABS: ALBUMIN 3.4 g/dL (3.2-5.0); ALKALINE PHOSPHATASE 125 u/l (38-126); BUN 18 mg/dL (8-23); BUN/CREATININE RATIO 22 (12-20 (CALC)); CHLORIDE 107 mmol/l (95-108); CREATININE 0.8 mg/dL (0.7-1.3); GFR FOR AFR.AMER. > 60 ML/MIN (>=60 (CALC)); GFR OTHER RACES > 60 ML/MIN (>=60 (CALC)); SGOT/AST 34 u/l (19-48); SODIUM 139 mmol/l (137-146); TOTAL PROTEIN 6.6 g/dL (6.3-8.2)
[2022-03-13 06:32] LABS: ANION GAP 8 (6-22 (CALC)); BILIRUBIN, TOTAL 0.2 mg/dL (0.0-1.4); CARBON DIOXIDE 28 mmol/l (22-30); POTASSIUM 3.8 mmol/l (3.5-5.1)
[2022-03-13 06:45] VITALS: BP 99/66
[2022-03-13 10:14] VITALS: BP 142/56
[2022-03-13 15:10] VITALS: BP 103/70
== END 2022-03-13 15:40 | disposition home health service (06) | DRG 193 ==
LOC: ED 08:24 → ED-I 10:00 → ED 10:50 → MS2 10:51
PROVIDERS: Family Medicine; Nurse Practitioner Family; ADMIT Internal Medicine; ATTEND Internal Medicine
DX: J10.1 Influenza due to other identified influenza virus with other respiratory manifestations (principal); J96.00 Acute respiratory failure, unspecified whether with hypoxia or hypercapnia; I10 Essential (primary) hypertension; E11.9 Type 2 diabetes mellitus without complications; E78.5 Hyperlipidemia, unspecified; J44.9 Chronic obstructive pulmonary disease, unspecified; I25.10 Atherosclerotic heart disease of native coronary artery without angina pectoris; M10.9 Gout, unspecified; F32.A Depression, unspecified; F03.90 Unspecified dementia, unspecified severity, without behavioral disturbance, psychotic disturbance, mood disturbance, and anxiety; Z86.73 Personal history of transient ischemic attack (TIA), and cerebral infarction without residual deficits; Z85.46 Personal history of malignant neoplasm of prostate; Z92.3 Personal history of irradiation; Z79.4 Long term (current) use of insulin; Z20.822 Contact with and (suspected) exposure to COVID-19
CPT/HCPCS: J1650

== ENCOUNTER 2022-10-09 16:35 | Observation (INO) | payer OTHER, MEDICARE ==
[2022-10-09] VITALS (14 sets, daily range): BP systolic 113–157; BP diastolic 46–72
[~2022-10-09] VITALS: Ht 180.3 cm; Wt 81.7 kg
[~2022-10-09 16:35] MED LIST changes: +LOSARTAN POTASS50 MG PO; +NOVOLO1 SC; +TAM75CAP PO
--- NOTE | 2022-10-09 16:40 | NUR ---
PT TO ROOM VIA WC. ASSIST X2 TO GET PATIENT INTO BED. DAUGHTER AT BEDSIDE. AUDIBLE CRACKLES NOTED.
[2022-10-09] MEDS ORDERED: NOVOLIN R100 UNIT/M (17:06)
[2022-10-09] MEDS ORDERED: WEGOVY1 MG (17:07)
[2022-10-09] MEDS ORDERED: TRESIBA100 UNIT/M (17:09)
[2022-10-09 17:38] LABS: BASO% 0.3 % (0-3); EOS% 1.8 % (0-8); HEMATOCRIT 39.6 % (39.0-50.0); HEMOGLOBIN 13.2 g/dl (14.0-18.0); IMMATURE GRANULOCYTES 0.2 % (0.0-5.0); LYMPH% 12.9 % (15-41); MEAN CELL VOLUME 86.7 fL CALC (80.0-100.0); MEAN CORPUSCULAR HGB 28.9 pG CALC (26.0-32.0); MEAN CORPUSCULAR HGB CONC 33.3 g/dL CAL (32.0-36.0); MONO% 10.7 % (2-13); NEUT# 9.17 thou/uL (1.82-7.42); NEUT% 74.1 % (42-76); RED BLOOD COUNT 4.57 mill/uL (4.70-6.10); RED CELL DISTRI WIDTH 14.5 % (11.5-15.5)
[2022-10-09 17:50] LABS: ALBUMIN 3.5 g/dL (3.2-5.0); CREATININE 1.4 mg/dL (0.7-1.3); POTASSIUM 4.1 mmol/l (3.5-5.1); TOTAL PROTEIN 6.3 g/dL (6.3-8.2)
[2022-10-09 17:51] LABS: BILIRUBIN, TOTAL 0.8 mg/dL (0.2-1.3)
--- NOTE | 2022-10-09 19:00 | NUR ---
CARE ASSUMED FOR PT; DAUGHTER BEDSIDE AND PT BEING TAKEN DOWN TO CT; VSS; NAD
--- NOTE | 2022-10-09 20:00 | NUR ---
PT RESTING; STATES HE IS FEELING A LOT BETTER; VSS
--- NOTE | 2022-10-09 21:00 | NUR ---
PT HAS ROOM ASSIGNMENT; PT GOING TO ICU FOR MS OVERFLOW; STAGGERING ADMISSIONS TO ICU
--- NOTE | 2022-10-09 22:00 | NUR ---
REPORT CALLED TO [facility] ICU; PT TRANSFERED VIA STRETCHER; VSS AND NAD; DAUGHTER WENT HOME; PT STATES AGAIN THAT HE FEELS A LOT BETTER THAN HE DID; DAUGHTER TOLD ME THAT PT TAKES HONEY THICKENED LIQUIDS; SOFT DIET; MEDS WHOLE IN APPLESAUCE; USES CANE BUT IS SUPPOSED TO USE WALKER; STATES HE IS STUBBORN; PT VERY PLEASENT
--- NOTE | 2022-10-09 22:05 | NUR ---
77 yr old white male admitted icu8 as medsurg tele overflow per stretcher from er. transferred to bed. bed weight obtained. bus driver/monitor shows sinus rhythm. ivf began as ordered. cough etiquette taught. history obtained per old & er record. oriented to room. fall precautions initiated. bed alarm on.
[2022-10-10] VITALS (25 sets, daily range): BP systolic 103–179; BP diastolic 34–80
--- NOTE | 2022-10-10 00:01 | NUR ---
eyes closed. no distress. cardiac cath technician shows sinus rhythm pacs pvcs.
--- NOTE | 2022-10-10 03:49 | NUR ---
hospital monitor shows sinus rhythm pacs pvcs.
--- NOTE | 2022-10-10 04:30 | NUR ---
vomited large amount brown slimy emesis that contained what appeared to be carrots. incont large amt urine. bath given. diaper applied.
--- NOTE | 2022-10-10 08:00 | NUR ---
REPORT RECIEVED FROM NIGHT RN. PT LYING IN BED; GIVEN BREAKFAST TRAY AND EATING AT EDGE OF BED. PT IS ALERT BUT CONFUSED; SPEECH IS DIFFICULT TO UNDERSTAND. PT HAS HX OF CVA. PT IS ON RA. LUNGS COARSE. PT HAS NON-PRODUCTIVE COUGH. PT DENIES SOB OR PAIN. BOWEL SOUNDS ACTIVE. PULSES STRONG. PT INCONTINENT; BRIEF IS CLEAN. CALL LIGHT AND BELONGINGS WITHN REACH. BED ALARM ON. VSS.
[2022-10-10 08:24] LABS: HEMATOCRIT 40.6 % (39.0-50.0); HEMOGLOBIN 13.3 g/dl (14.0-18.0); MEAN CELL VOLUME 87.5 fL CALC (80.0-100.0); MEAN CORPUSCULAR HGB 28.7 pG CALC (26.0-32.0); MEAN CORPUSCULAR HGB CONC 32.8 g/dL CAL (32.0-36.0); RED BLOOD COUNT 4.64 mill/uL (4.70-6.10); RED CELL DISTRI WIDTH 14.6 % (11.5-15.5)
[2022-10-10 08:46] LABS: ALBUMIN 3.4 g/dL (3.2-5.0); ALKALINE PHOSPHATASE 133 u/l (38-126); BILIRUBIN, TOTAL 0.8 mg/dL (0.2-1.3); BUN 31 mg/dL (8-23); BUN/CREATININE RATIO 28 (12-20 (CALC)); CARBON DIOXIDE 19 mmol/l (22-30); CHLORIDE 113 mmol/l (95-108); CREATININE 1.1 mg/dL (0.7-1.3); GFR FOR AFR.AMER. > 60 ML/MIN (>=60 (CALC)); GFR OTHER RACES > 60 ML/MIN (>=60 (CALC)); MAGNESIUM 1.7 mg/dL (1.6-2.3); SGOT/AST 50 u/l (19-48); SODIUM 143 mmol/l (137-146); TOTAL PROTEIN 6.1 g/dL (6.3-8.2)
[2022-10-10 08:52] LABS: ANION GAP 14 (6-22 (CALC)); POTASSIUM 3.2 mmol/l (3.5-5.1)
--- NOTE | 2022-10-10 12:00 | NUR ---
PT SITTING AT EDGE OF BED TO EAT. PT'S DAUGHTER UPDATED ON STATUS OVER THE PHONE. PT DENIED ANY NEEDS OR PAIN AT THIS TIME. CALL LIGHT AND BELONGINGS WITHIN REACH. VSS.
--- NOTE | 2022-10-10 14:20 | NUR ---
OT AT BEDSIDE TO ASSESS PT.
--- NOTE | 2022-10-10 16:00 | NUR ---
PT LYING IN BED WATCHING TV. PT'S DAUGHTER AT BEDSIDE. PT DENIES ANY NEEDS. CALL LIGHT AND BELONGINGS WITHIN REACH. VSS.
[2022-10-10 18:16] LABS: URINE BILIRUBIN - DIPSTICK Negative (NEGATIVE); URINE BLOOD DIPSTICK Negative (NEGATIVE); URINE CLARITY Clear; URINE GLUCOSE - DIPSTICK Negative (NEGATIVE); URINE KETONE Negative (NEGATIVE); URINE LEUK ESTERASE Negative (Negative); URINE NITRITE - DIPSTICK Negative (Negative); URINE PROTEIN - DIPSTICK Negative (NEG-TRACE); URINE UROBILINOGEN - DIPSTICK 0.2 E.U./dL (0.2)
[2022-10-10 18:18] LABS: URINE COLOR Yellow
--- NOTE | 2022-10-10 19:45 | NUR ---
awakens easily. no c/o voiced. playground monitor shows sinus rhythm. #20 lfa. ns infusing @ 100cchr. thickened po fluids given & mor well. pure wick cath in place. urine clear yellow. fall precautions & bed alarm conts.
[2022-10-11] VITALS (20 sets, daily range): BP systolic 122–190; BP diastolic 56–98
--- NOTE | 2022-10-11 00:01 | NUR ---
eyes closed. no distress. monitoring coordinator shows sinus arcadio.
--- NOTE | 2022-10-11 04:00 | NUR ---
incont of stool. pt cleansed, pure wick reapplied, diaper reapplied.
--- NOTE | 2022-10-11 04:00 | NUR ---
stool spec sent to lab.
[2022-10-11 05:39] LABS: ALKALINE PHOSPHATASE 121 u/l (38-126); ANION GAP 9 (6-22 (CALC)); BASO% 0.2 % (0-3); BILIRUBIN, TOTAL 0.7 mg/dL (0.2-1.3); BUN 17 mg/dL (8-23); BUN/CREATININE RATIO 20 (12-20 (CALC)); CARBON DIOXIDE 18 mmol/l (22-30); CHLORIDE 116 mmol/l (95-108); CREATININE 0.9 mg/dL (0.7-1.3); EOS% 3.2 % (0-8); GFR FOR AFR.AMER. > 60 ML/MIN (>=60 (CALC)); GFR OTHER RACES > 60 ML/MIN (>=60 (CALC)); HEMOGLOBIN 12.7 g/dl (14.0-18.0); IMMATURE GRANULOCYTES 0.3 % (0.0-5.0); LYMPH% 18.7 % (15-41); MAGNESIUM 1.7 mg/dL (1.6-2.3); MEAN CELL VOLUME 91.3 fL CALC (80.0-100.0); MEAN CORPUSCULAR HGB CONC 31.8 g/dL CAL (32.0-36.0); MONO% 13.6 % (2-13); NEUT# 5.85 thou/uL (1.82-7.42); POTASSIUM 3.3 mmol/l (3.5-5.1); RED BLOOD COUNT 4.38 mill/uL (4.70-6.10); RED CELL DISTRI WIDTH 14.6 % (11.5-15.5); SGOT/AST 48 u/l (19-48); SODIUM 140 mmol/l (137-146); TOTAL PROTEIN 5.9 g/dL (6.3-8.2)
--- NOTE | 2022-10-11 07:25 | NUR ---
PERFROMED BEDSIDE REPORT WITH NIGHTSHIFT NURSE. PT NOTED LAYING IN BED, SUPINE. REPOSITIONED PT UP TO HIGH FOWLERS FOR BREAKFAST TRAY. EDUCATED PT ON DIET AND LIQUIDS. PT IS A/OX3, ABLE TO RESPOND WITH SLURRED/GARBLED SPEECH. PT RESPONSE TIME IS DELAYED. PT HAS PRODUCTIVE WET COUGH PRESENT, LUNG SOUNDS CRACKLE THROUGH OUT. PT ON RM AIR, NO S/S OF SOB. O2 MONITOR IN PLACE. PT ON PUREWICK. EDUCATED PT ON PLAN OF CARE TODAY. CALL LIGHT WIHTIN REACH AND SAFETY PRECAUTIONS IN PLACE.
--- NOTE | 2022-10-11 09:10 | NUR ---
PT ATE BREAKFAST AND TOLERATED WELL. PT SITTING UP HIGH FOWLERS WATCHING TV. NO COMPLAINTS OF PAIN AT THIS TIME. CALL LIGHT WITHIN REACH AND SAFETY PRECAUTION IN PLACE.
--- NOTE | 2022-10-11 11:44 | NUR ---
PT HAS BEEN CLEANED UP AND CHANGED. MODERATE SIZED BM CHARTED. PT SITTING UP IN CHAIR, LEGS ELEVATED, PT COULD STAND AND PIVOT WITH WALKER. BEDSIDE TABLE IN FRONT WITH LUNCH TRAY GIVEN. ENCOURAGED OT TO EAT. NO S/S OF DISTRESS AT THIS TIME. DENIES ANY PAIN. CALL LIGHT WITHIN REACH AND SAFETY PRECAUTIONS IN PLACE.
--- NOTE | 2022-10-11 13:38 | NUR ---
PT HAS BEEN UP WALKING AROUND WITH WALKER IN THE ROOM, VISITOR PRESENT. PT GAIT SHUFFLES BUT STEADY. ASSISTED PT WITH SITTING BACK DOWN INTO CHAIR. WATCHING TV. DENIES ANY PAIN AT THIS TIME, CALL LIGHT WITHIN REACH AND SAFETY PRECAUTIONS IN PLACE.
--- NOTE | 2022-10-11 15:45 | NUR ---
IV site discontinued, cath intact. No edema , no redness, voices no discomfort. Discharge instructions given. Patient verbalizes understanding of same. Discharged in stable condition via Wheelchair to [facility] with staff. All belongings sent with pt.
== END 2022-10-11 15:45 | disposition home or self-care (01) | DRG 684 ==
LOC: ED 16:35 → ED-I 18:26 → ED 20:07 → ICU 20:08
PROVIDERS: Family Medicine; Student in an Organized Health Care Education/Training Program; ADMIT Internal Medicine; ATTEND Internal Medicine
DX: N17.9 Acute kidney failure, unspecified (principal); E86.0 Dehydration; R19.7 Diarrhea, unspecified; E87.6 Hypokalemia; I10 Essential (primary) hypertension; E11.9 Type 2 diabetes mellitus without complications; I25.10 Atherosclerotic heart disease of native coronary artery without angina pectoris; I69.928 Other speech and language deficits following unspecified cerebrovascular disease; E78.5 Hyperlipidemia, unspecified; F03.90 Unspecified dementia, unspecified severity, without behavioral disturbance, psychotic disturbance, mood disturbance, and anxiety; Z85.46 Personal history of malignant neoplasm of prostate; Z92.3 Personal history of irradiation; Z79.4 Long term (current) use of insulin; Z87.891 Personal history of nicotine dependence; Z20.822 Contact with and (suspected) exposure to COVID-19
CPT/HCPCS: Q9967